=== PATIENT | female | born 1950 | race Caucasian/White ===

== ENCOUNTER 2018-03-05 17:42 | Emergency (ER) | payer MEDICARE, SELFPAY ==
[2018-03-05 17:45] VITALS: BP 141/76; PULSE 117; RESP 18; TEMP 37.4; O2SAT 98; BMI 38.2
--- NOTE | 2018-03-05 17:49 | ED_ITS ---
HPI - Extremity Injury (Lower) <JORDY Hernandez - Last Filed: 03/05/18 21:55> General Chief Complaint: Extremity Injury, Lower Stated Complaint: RT KNEE SWELLING Time Seen by Provider: 03/05/18 17:49 Source: patient History of Present Illness HPI Narrative: 67-year-old female here for complaint of pain into her right knee for the past week. She reports that she was walking in the kitchen when she twisted and felt the pain started to her right knee. She states the pain has not resolved to her right knee for this past week. She reports increased pain with ambulation. She did ambulate into the emergency room today. She denies any direct trauma to the knee. She denies any other concerns or complaints at this time. Related Data Previous Rx's Medication Instructions Recorded Glucose: Home Monitoring Kit 0 kit #1 ea 05/08/16 chlorthalidone 25 - 50 mg PO QDAY #60 tab 01/03/18 Glucose: Test Strips str BID #360 01/07/18 duloxetine 60 mg PO QDAY #30 cap 01/16/18 metformin [Glucophage] 500 mg PO TID #270 tab 01/23/18 duloxetine 30 mg PO QDAY #90 cap 01/24/18 losartan 100 mg tablet 100 mg PO QDAY #90 tab 02/22/18 alendronate 70 mg tablet 70 mg PO QWEEK #12 tab 02/27/18 Allergies Allergy/AdvReac Type Severity Reaction Status Date / Time cetirizine [CETIRIZINE] AdvReac Severe SLEEPINESS Unverified 01/23/18 12:25 THAT LASTED FOR ABOUT 2 1/2 DAYS Review of Systems <JORDY Hernandez - Last Filed: 03/05/18 21:55> Constitutional Denies chills, Denies fever(s), Denies lethargy and Denies weakness Eyes Denies change in vision, Denies eye discharge, Denies irritation and Denies loss of vision Musculoskeletal Comments: Right knee pain Neurologic Denies loss of vision and Denies weakness Exam <JORDY Hernandez - Last Filed: 03/05/18 21:55> Initial Vital Signs Initial Vital Signs: Vital Signs Temperature 99.3 F 03/05/18 17:45 Pulse Rate 117 H 03/05/18 17:45 Respiratory Rate 18 03/05/18 17:45 Blood Pressure 141/76 H 03/05/18 17:45 Pulse Oximetry 98 03/05/18 17:45 Const General: cooperative and well developed Nutritional Appearance: well nourished Orientation: alert, awake, oriented x3 and not confused [facility] [place] Mouth: oral mucosae normal, oropharynx normal and moist mucous membranes Eyes General: appearance normal, both eyes and all related structures Eyelids: eyelids normal Conjunctivae: conjunctivae normal Sclera: sclerae normal Pupils: PERRL EOM: EOM intact bilaterally Resp Effort & Inspection: normal respiratory effort, able to speak in complete sentences, no respiratory distress and no use of accessory muscles Auscultation: clear to auscultation bilaterally, no rales, no rhonchi and no wheezes Cardio Rate: regular rate Rhythm: regular rhythm Heart Sounds: no click, no gallops, no murmurs and no rubs Pulses: normal peripheral pulses Skin General: no rashes or lesions noted, No jaundice and No petechiae Extrem Other: Slight swelling to right knee. No deformities. No erythema. No open lesions. Distal sensation is intact. Distal pulses are intact. Distal range of motion is intact. Negative anterior posterior drawer sign negative varus and valgus stress test <Rajiv Rm DO - Last Filed: 03/06/18 03:21> Initial Vital Signs Initial Vital Signs: Vital Signs Temperature 99.3 F 03/05/18 17:45 Pulse Rate 117 H 03/05/18 17:45 Respiratory Rate 18 03/05/18 17:45 Blood Pressure 141/76 H 03/05/18 17:45 Pulse Oximetry 98 03/05/18 17:45 Course <JORDY Hernandez - Last Filed: 03/05/18 21:55> Orders Ordered: ED Orders 03/05/18 17:58 XR knee RT 3V Stat Vital Signs - 8 hr 03/05/18 17:45 03/05/18 18:40 03/05/18 19:16 Temperature 99.3 F 98.3 F Pulse Rate 117 H 109 H 107 H Respiratory Rate 18 19 Blood Pressure 141/76 H 120/69 Pulse Oximetry 98 97 <Rajiv Rm DO - Last Filed: 03/06/18 03:21> Orders Ordered: ED Orders 03/05/18 17:58 XR knee RT 3V Stat Vital Signs - 8 hr 03/05/18 17:45 03/05/18 18:40 03/05/18 19:16 Temperature 99.3 F 98.3 F Pulse Rate 117 H 109 H 107 H Respiratory Rate 18 19 Blood Pressure 141/76 H 120/69 Pulse Oximetry 98 97 MDM - Extremity Injury (Lower) <JORDY Hernandez - Last Filed: 03/05/18 21:55> Imaging Data knee: Radiologist's impression: Signed Patient: Aleksandra Barreto MR#: [id number] : 1950 Acct:[id number] Age/Sex: 67 / F Date of Service: 03/05/18 Loc: ED Accession Number: [id number] Procedure: XR knee RT 3V Ordering Provider: Cheng Hardy PROCEDURE: XR KNEE RT 3V INDICATIONS: right knee pain, swelling TECHNIQUE: 3 views of the knee were acquired. COMPARISON: None. FINDINGS: Bones: No fractures or dislocations. No suspicious bony lesions. There is moderate degenerative joint disease with joint space narrowing and osteophyte formation. Soft tissues: Small to moderate joint effusion. No suspicious soft tissue calcifications. IMPRESSION: No fractures. Degenerative joint disease and joint effusion. Dictated by: Jeremiah Henley M.D. on 03/05/2018 at 18:12 Approved by: Jeremiah Henley M.D. on 03/05/2018 at 18:13 [facility] Narrative Medical decision making narrative: X-ray of the right knee was obtained was negative for any acute findings. Signs and symptoms presents as sprain to the right knee. She is placed in knee immobilizer and crutches. She is instructed to follow up with primary care provider for further evaluation and discussion of MRI if continued a right knee pain. Use [id number] Tylenol as needed for any discomfort. Ice and and elevation to help with swelling. For any worsening symptoms return to the emergency room. Patient's heart rate was elevated today. She had no shortness of breath or chest pain. She states she has not been drinking enough water lately. She is instructed to drink fluids and follow up with primary care provider in the next few days. Return emergency room for any worsening symptoms. Discharge Plan Departure Patient Disposition: Home, Self-Care Clinical Impression: Right knee sprain Discharge Date/Time: 03/05/18 19:18 Interventions: ED Discharge Assessment Last Done: 03/05/18 19:16 Instructions: DI for Knee Sprain Activity Restrictions/Additional Instructions: X-ray of the right knee was obtained was negative for any acute findings. Will treat for acute knee sprain with [id number] Tylenol as needed for any discomfort. You have been placed in a knee immobilizer and crutches use as directed. Follow up with primary care provider and continued pain recommend getting an MRI to further evaluate the knee. For any worsening symptoms return to the emergency room. Heart rate was elevated today in the emergency room ensure you are drinking plenty of fluids. Prescriptions: No Action Glucose: Home Monitoring Kit Qty: 1 RF: 0 chlorthalidone 25 MG tablet 25 - 50 mg PO QDAY Qty: 60 RF: 3 Glucose: Test Strips BID Qty: 360 RF: 3 duloxetine 60 MG capsule,delayed release(DR/EC) 60 mg PO QDAY Qty: 30 RF: 3 metformin [Glucophage] 500 MG tablet 500 mg PO TID Qty: 270 RF: 0 duloxetine 30 MG capsule,delayed release(DR/EC) 30 mg PO QDAY Qty: 90 RF: 3 losartan 100 mg tablet 100 mg PO QDAY Qty: 90 RF: 1 alendronate 70 mg tablet 70 mg PO QWEEK Qty: 12 RF: 3 Referrals: Latrice Kearney PA-C [Primary Care Provider] - <Rajiv Rm DO - Last Filed: 03/06/18 03:21> Cosign ED Attending Alondra Attestation: I was immediately available in the department for consultation. Documentation has been reviewed. I agree with assessment and plan.
--- NOTE | 2018-03-05 17:58 | DI.RAD.S_ITS ---
PROCEDURE: XR KNEE RT 3V INDICATIONS: right knee pain, swelling TECHNIQUE: 3 views of the knee were acquired. COMPARISON: None. FINDINGS: Bones: No fractures or dislocations. No suspicious bony lesions. There is moderate degenerative joint disease with joint space narrowing and osteophyte formation. Soft tissues: Small to moderate joint effusion. No suspicious soft tissue calcifications. IMPRESSION: No fractures. Degenerative joint disease and joint effusion. Dictated by: Jeremiah Henley M.D. on 03/05/2018 at 18:12 Approved by: Jeremiah Henley M.D. on 03/05/2018 at 18:13
[2018-03-05 18:40] VITALS: PULSE 109
[2018-03-05 19:16] VITALS: BP 120/69; PULSE 107; RESP 19; TEMP 36.8; O2SAT 97
== END 2018-03-05 19:18 | disposition home or self-care (01) ==
PROVIDERS: Emergency Provider Nurse Practitioner Family; Family Provider Physician Assistant; PCP Physician Assistant
DX: S83.91XA Sprain of unspecified site of right knee, initial encounter (principal); W19.XXXA Unspecified fall, initial encounter
CPT/HCPCS: 73562; 99283

== ENCOUNTER → 2018-03-19 13:37 | Outpatient (CLI) | payer MEDICARE, MEDICAID, SELFPAY ==
[2018-03-19 14:19] LABS: Magnesium 1.5 mg/dL (1.6-2.3)
[2018-03-19 14:20] LABS: Erythrocyte Sedimentation Rate 21 MM/HR (0-20)
== END ==
PROVIDERS: PCP Physician Assistant; Visit Provider Physician Assistant
DX: D86.9 Sarcoidosis, unspecified (principal); R79.0 Abnormal level of blood mineral; E11.42 Type 2 diabetes mellitus with diabetic polyneuropathy; I10 Essential (primary) hypertension
CPT/HCPCS: 36415; 83735; 85651

== ENCOUNTER → 2018-06-05 08:16 | Outpatient (CLI) | payer MEDICARE, SELFPAY ==
[2018-06-05 09:07] LABS: Add Manual Diff / Slide Review NO; Basophils Percent Auto 0.5 % (0-2); Hematocrit 38.8 % (36-46); Hemoglobin 13.1 g/dL (12.0-16.0); Lymphocytes Percent Auto 28.2 % (25-40); Mean Corpuscular HGB Conc 33.7 % (30-36); Mean Corpuscular Hemoglobin 28.3 PG (26-34); Mean Corpuscular Volume 83.8 fL (80-100); Neutrophils Absolute Auto 4300 /uL (3000-5900); Neutrophils Percent Auto 59.3 % (50-75); Platelet Count 221 X10^3/uL (150-400); Red Blood Cell Count 4.63 X10^6/uL (4.0-5.2); Red Cell Distribution Width 14.3 % (11.6-14.8); White Blood Cell Count 7.3 X10^3/uL (4.5-11.0)
[2018-06-05 09:11] LABS: Hemoglobin A1C% w Est Avg Glu 6.6 % (4.0-6.0)
[2018-06-05 09:17] LABS: Alanine Aminotransferase 39 IU/L (9-52); Albumin Globulin Ratio 1.3 (1.0-2.8); Alkaline Phosphatase 65 U/L (38-126); Aspartate Aminotransferase 27 IU/L (14-36); BUN Creatinine Ratio 25.7 (6-22); Bilirubin Total 0.5 mg/dL (0.2-1.3); Blood Urea Nitrogen 18 mg/dL (7-17); Calcium 9.1 mg/dL (8.4-10.2); Carbon Dioxide 29 mmol/L (22-32); Chloride 99 mmol/L (98-107); Cholesterol 130 mg/dL (140-199); Estimated Glomerular Filt Rate > 60.0 mL/min (>60); Glucose 139 mg/dL (80-110); HDL Cholesterol 40 mg/dL (40-60); HEMOLYSIS < 15 (0-50); LDL Cholesterol Calculated 55 mg/dL (<100); Potassium 4.1 mmol/L (3.4-5.1); Sodium 138 mmol/L (137-145); Triglycerides 176 mg/dL (35-150)
== END ==
PROVIDERS: PCP Internal Medicine; Visit Provider Physician Assistant
DX: I10 Essential (primary) hypertension (principal); E78.2 Mixed hyperlipidemia; E11.42 Type 2 diabetes mellitus with diabetic polyneuropathy
CPT/HCPCS: 36415; 80053; 80061; 83036; 85025

== ENCOUNTER → 2018-07-03 08:56 | Outpatient (CLI) | payer MEDICARE, SELFPAY ==
--- NOTE | 2018-07-03 | DI.RAD.S_ITS ---
PROCEDURE: XR CHEST 2V INDICATIONS: COUGH, HISTORY OF SARCOIDOSIS TECHNIQUE: 2 views of the chest were acquired. COMPARISON: [facility], , CHEST 2 VIEW, 11/29/2016, 9:01. FINDINGS: Surgical changes and devices: None. Lungs and pleura: No pleural effusions or pneumothorax. Mildly increased interstitial lung markings are noted, which may be related to patient's history of sarcoidosis. No focal infiltrate is seen. Mediastinum: Mediastinal contours are normal. Heart size is enlarged. Bones and chest wall: No suspicious bony abnormalities. Soft tissues appear unremarkable. IMPRESSION: No acute cardiopulmonary pathology. Chronically increased interstitial markings, which may be related to patient's known sarcoidosis. Dictated by: Roland Lopez M.D. on 07/03/2018 at 11:11 Approved by: Roland Lopez M.D. on 07/03/2018 at 11:14
== END ==
PROVIDERS: PCP Internal Medicine; Visit Provider Internal Medicine
DX: R05 Cough (principal); D86.9 Sarcoidosis, unspecified
CPT/HCPCS: 71046

== ENCOUNTER 2018-08-09 11:16 | Emergency (ER) | payer MEDICARE, SELFPAY ==
[2018-08-09 11:20] VITALS: BP 151/89; PULSE 101; RESP 18; TEMP 36.8; O2SAT 97; BMI 38.5
--- NOTE | 2018-08-09 12:41 | ED.HA ---
HPI - Headache <Anita Uribe PA-C - Last Filed: 08/09/18 21:23> General Chief Complaint: Headache Stated Complaint: HEADACHES FOR A MONTH, NECK IS HURTING Time Seen by Provider: 08/09/18 12:33 Source: patient Mode of arrival: ambulatory Limitations: no limitations History of Present Illness HPI Narrative: this 68-year-old female comes in due to persistent headache for the last month. She states that frequently this is all around her head, today more in the frontal area. She states that she had been taking Tylenol for headache and not keeping her from activity, but in the last 2 weeks she has also had pain in the right side of her neck and shoulder area along with this and is concerned due to her history of sarcoidosis. she did run out of Tylenol 3 weeks ago and has been taking aspirin. She states that she has bilateral ear tubes and history of TM perforation. She has had some clear liquid in her right eardrum at times along with this. She states that she tends to have sinus symptoms and cough during the winter chronically, no acute change. She has not had fever. She denies any photophobia. She denies any jaw claudication. She states that when her headache is more severe like it was yesterday she can have some nausea and feels like her vision might be a little blurred, however does not affect her ability to read or watch TV. She States that her neck can be sore with some movements, but no difficulty moving her shoulders. She has not had any new rash. She denies any tooth pain. She states that she came in today because she was supposed to see design specialist and was going to review this with her but was not able to make that appointment. She has not had further testing with her PCP for this Related Data Home Medications Medication Instructions Recorded Confirmed Glucose: Home Monitoring Kit 1 kit MISCELLANEOUS DIRECTED 08/09/18 08/09/18 Glucose: Test Strips 1 str MISCELLANEOUS BID 08/09/18 08/09/18 Previous Rx's Medication Instructions Recorded duloxetine 60 mg PO QDAY #30 cap 01/16/18 duloxetine 30 mg PO QDAY #90 cap 01/24/18 losartan 100 mg tablet 100 mg PO QDAY #90 tab 02/22/18 alendronate 70 mg tablet 70 mg PO QWEEK #12 tab 02/27/18 chlorthalidone 25 mg tablet 25 - 50 mg PO QDAY #60 tab 06/05/18 metformin 500 mg tablet 500 mg PO TID #270 tab 07/22/18 cyclobenzaprine 10 mg PO Q8H PRN #10 tab 08/09/18 Allergies Allergy/AdvReac Type Severity Reaction Status Date / Time cetirizine [CETIRIZINE] AdvReac Severe SLEEPINESS Unverified 03/18/18 11:25 THAT LASTED FOR ABOUT 2 1/2 DAYS Review of Systems <Anita Uribe PA-C - Last Filed: 08/09/18 21:23> Review of Systems All systems reviewed & are unremarkable except as noted in HPI and below PFSH <Anita Uribe PA-C - Last Filed: 08/09/18 21:23> Comment: occasional ETOH Exam <Anita Uribe PA-C - Last Filed: 08/09/18 21:23> Narrative Exam Narrative: GENERAL APPEARANCE: Patient sitting comfortably, in no distress. HEENT: PERRL, EOMI, right TM appears to have 2 old perforations, tympanostomy tube not visible, no erythema, there are few drops of clear drainage in the canal, left also appears to have an old perforation, tip of tympanostomy tube visible. Normal oropharynx, PND noted, no sinus TTP NECK: Supple, no masses LUNGS: Clear to auscultation bilaterally, occasional cough on exam. HEART: Rate and rhythm regular without murmur, normal S1 and S2, no S3 or S4. NEUROLOGIC: Alert and oriented, normal speech, and coordination. MUSCULOSKELETAL: Full Csp AROM, with tenderness on bilateral lateral bend and right rotation. Full range of motion of the shoulders without tenderness DERMATOLOGIC: No exanthem Initial Vital Signs Initial Vital Signs: Vital Signs Temperature 98.3 F 08/09/18 11:20 Pulse Rate 101 H 08/09/18 11:20 Respiratory Rate 18 08/09/18 11:20 Blood Pressure 151/89 H 08/09/18 11:20 Pulse Oximetry 97 08/09/18 11:20 <Emily Posada DO - Last Filed: 08/11/18 08:05> Initial Vital Signs Initial Vital Signs: Vital Signs Temperature 98.3 F 08/09/18 11:20 Pulse Rate 101 H 08/09/18 11:20 Respiratory Rate 18 08/09/18 11:20 Blood Pressure 151/89 H 08/09/18 11:20 Pulse Oximetry 97 08/09/18 11:20 Course <Anita Uribe PA-C - Last Filed: 08/09/18 21:23> Additional Information: patient appears neurologically normal. No evidence of arteritis or other source for her headache. Discussed likely multifactorial given her history of ear issues, sinus problems and also new neck and shoulder pain and strain. She is feeling significantly improved following Tylenol and Flexeril. Will continue these at home as needed ( she does not drive), and she will call her PCP for follow-up as well as ENT, with whom she is established locally. She agreed to return if any new or acutely worsening symptoms Orders Ordered: Discontinued Medications Acetaminophen (Tylenol) 650 mg PO NOW ONE Stop: 08/09/18 13:01 Last Admin: 08/09/18 13:05 Dose: 650 mg Cyclobenzaprine HCl (Flexeril) 5 mg PO NOW ONE Stop: 08/09/18 13:01 Last Admin: 08/09/18 13:04 Dose: 5 mg Vital Signs - 8 hr 08/09/18 14:36 Pulse Rate 91 H Respiratory Rate 15 Blood Pressure 140/70 Pulse Oximetry 97 <Emily Posada DO - Last Filed: 08/11/18 08:05> Orders Ordered: Discontinued Medications Acetaminophen (Tylenol) 650 mg PO NOW ONE Stop: 08/09/18 13:01 Last Admin: 08/09/18 13:05 Dose: 650 mg Cyclobenzaprine HCl (Flexeril) 5 mg PO NOW ONE Stop: 08/09/18 13:01 Last Admin: 08/09/18 13:04 Dose: 5 mg Vital Signs - 8 hr 08/09/18 14:36 Pulse Rate 91 H Respiratory Rate 15 Blood Pressure 140/70 Pulse Oximetry 97 MDM - Headache <Anita Uribe PA-C - Last Filed: 08/09/18 21:23> Imaging Data Cspine: Radiologist's impression: [address] [address] XRay Report Signed Patient: Aleksandra Barreto [facility]#: [id number] : 9Acct:[id number] Age/Sex: 68 / FDate of Service: 08/09/18 Loc: ED Accession Number: [id number] Procedure: XR cervical spine 2V or 3V Ordering Provider: Anita Uribe P.A-C PROCEDURE: XR CERVICAL SPINE 2V OR 3V INDICATIONS: pain TECHNIQUE: 3 view(s) of the cervical spine were acquired. COMPARISON: None. FINDINGS: Bones: There is straightening and reversal of normal cervical lordosis centered at C4-5 level. Minimal anterolisthesis of C3 on C4 is seen. Degenerative endplate changes and bilateral facet hypertrophic changes are noted at C3-4 through C6-7 levels. No acute compression fracture or gross traumatic spondylolisthesis. The lateral masses of C1 appear intact on the odontoid view. No suspicious bony lesions. Soft tissues: No prevertebral soft tissue swelling. IMPRESSION: Degenerative disc disease throughout cervical spine more prominent at C5-6 level. Minimal anterolisthesis of C3 on C4. No acute compression fracture or traumatic spondylolisthesis. Dictated by: Roland Lopez M.D. on 08/09/2018 at 13:42 Approved by: Roland Lopez M.D. on 08/09/2018 at 13:43 CT scan - head: Radiologist's impression: [place] [address] CT Scan Report Signed Patient: Aleksandra Barreto [facility]#: [id number] : 9Acct:[id number] Age/Sex: 68 / FDate of Service: 08/09/18 Loc: ED Accession Number: [id number] Procedure: CT head/brain wo con Ordering Provider: Anita Uribe P.A-C PROCEDURE: CT HEAD/BRAIN WO CON INDICATIONS: atypical MONTANEZ TECHNIQUE: Noncontrast 4.5 mm thick angled axial sections acquired from the foramen magnum to the vertex, with coronal and sagittal reformats. For radiation dose reduction, the following was used: automated exposure control, adjustment of mA and/or kV according to patient size. COMPARISON: None. FINDINGS: Image quality: Excellent. CSF spaces: Basal cisterns are patent. No extra-axial fluid collections. Ventricles are mildly prominent with corresponding minimal parenchymal volume loss. Brain: No midline shift. No intracranial masses or hemorrhage. Davalos-white matter interface is normal. There may be subtle areas of low attenuation within the periventricular white matter of the supratentorial brain suggesting prior areas of ischemia. There also are areas of low attenuation involving the bilateral basal ganglia. Skull and face: Calvarium and visualized facial bones are intact, without suspicious lesions. Sinuses: Visualized sinuses and mastoids are clear. IMPRESSION: 1. No acute intracranial hemorrhage. 2. Possible mild chronic small vessel ischemic changes and parenchymal volume loss. Dictated by: Rohan Loza M.D. on 08/09/2018 at 12:33 Approved by: Rohan Loza M.D. on 08/09/2018 at 12:34 Discharge Plan Departure Patient Disposition: Home Clinical Impression: Headache Discharge Date/Time: 08/09/18 14:37 Interventions: ED Discharge Assessment Last Done: 08/09/18 14:36 Instructions: DI for Headache Activity Restrictions/Additional Instructions: as we talked about today, I think your headache is likely caused by several factors. Your sinus and ear problems may contribute, and you need to follow-up on your here since I do not see a tube today. Clearly you have muscle soreness and tension in the neck which may contribute as well. Since the Tylenol and muscle relaxant have helped you, you can continue these as needed (remember that the muscle relaxant can make you sleepy, so please avoid activities where you need to be alert when taking it). You may want to try Tylenol extended release or arthritis Strength, which is 650 mg per pill every 8 hr. The pharmacist can help you find this, it is [id number]. You may also wish to try [id number] lidocaine or topical patches, and heat or ice. Please follow-up with your PCP early next week, and also please call [facility] to schedule follow-up. As we talked about, you should return here if you have any acutely worsening symptoms, or new symptoms such as vomiting, vision change, or weakness. Prescriptions: New cyclobenzaprine 10 mg tablet 10 mg PO Q8H PRN (Reason: muscle spasm) Qty: 10 RF: 0 No Action duloxetine 60 MG capsule,delayed release(DR/EC) 60 mg PO QDAY Qty: 30 RF: 3 duloxetine 30 MG capsule,delayed release(DR/EC) 30 mg PO QDAY Qty: 90 RF: 3 losartan 100 mg tablet 100 mg PO QDAY Qty: 90 RF: 1 alendronate 70 mg tablet 70 mg PO QWEEK Qty: 12 RF: 3 chlorthalidone 25 mg tablet 25 - 50 mg PO QDAY Qty: 60 RF: 0 metformin [Glucophage] 500 mg tablet 500 mg PO TID Qty: 270 RF: 0 Glucose: Home Monitoring Kit 1 kit miscellaneous DIRECTED RF: 0 Glucose: Test Strips 1 str miscellaneous BID RF: 0 Referrals: [facility] [Provider Group] [facility] [Provider Group] <Emily Posada DO - Last Filed: 08/11/18 08:05> Cosign ED Attending Cosignature Attestation: I was immediately available in the department for consultation. This documentation has been reviewed and I agree with assessment and plan. Supervised by Emily Posada DO
--- NOTE | 2018-08-09 12:45 | ED_ITS ---
HPI - Headache <Anita Uribe PA-C - Last Filed: 08/09/18 21:23> General Chief Complaint: Headache Stated Complaint: HEADACHES FOR A MONTH, NECK IS HURTING Time Seen by Provider: 08/09/18 12:33 Source: patient Mode of arrival: ambulatory Limitations: no limitations History of Present Illness HPI Narrative: this 68-year-old female comes in due to persistent headache for the last month. She states that frequently this is all around her head, today more in the frontal area. She states that she had been taking Tylenol for headache and not keeping her from activity, but in the last 2 weeks she has also had pain in the right side of her neck and shoulder area along with this and is concerned due to her history of sarcoidosis. she did run out of Tylenol 3 weeks ago and has been taking aspirin. She states that she has bilateral ear tubes and history of TM perforation. She has had some clear liquid in her right eardrum at times along with this. She states that she tends to have sinus symptoms and cough during the winter chronically, no acute change. She has not had fever. She denies any photophobia. She denies any jaw claudication. She states that when her headache is more severe like it was yesterday she can have some nausea and feels like her vision might be a little blurred, however does not affect her ability to read or watch TV. She States that her neck can be sore with some movements, but no difficulty moving her shoulders. She has not had any new rash. She denies any tooth pain. She states that she came in today because she was supposed to see presentation specialist and was going to review this with her but was not able to make that appointment. She has not had further testing with her PCP for this Related Data Home Medications Medication Instructions Recorded Confirmed Glucose: Home Monitoring Kit 1 kit MISCELLANEOUS DIRECTED 08/09/18 08/09/18 Glucose: Test Strips 1 str MISCELLANEOUS BID 08/09/18 08/09/18 Previous Rx's Medication Instructions Recorded duloxetine 60 mg PO QDAY #30 cap 01/16/18 duloxetine 30 mg PO QDAY #90 cap 01/24/18 losartan 100 mg tablet 100 mg PO QDAY #90 tab 02/22/18 alendronate 70 mg tablet 70 mg PO QWEEK #12 tab 02/27/18 chlorthalidone 25 mg tablet 25 - 50 mg PO QDAY #60 tab 06/05/18 metformin 500 mg tablet 500 mg PO TID #270 tab 07/22/18 cyclobenzaprine 10 mg PO Q8H PRN #10 tab 08/09/18 Allergies Allergy/AdvReac Type Severity Reaction Status Date / Time cetirizine [CETIRIZINE] AdvReac Severe SLEEPINESS Unverified 03/18/18 11:25 THAT LASTED FOR ABOUT 2 1/2 DAYS Review of Systems <Anita Uribe PA-C - Last Filed: 08/09/18 21:23> Review of Systems All systems reviewed & are unremarkable except as noted in HPI and below PFSH <Anita Uribe PA-C - Last Filed: 08/09/18 21:23> Comment: occasional ETOH Exam <Anita Uribe PA-C - Last Filed: 08/09/18 21:23> Narrative Exam Narrative: GENERAL APPEARANCE: Patient sitting comfortably, in no distress. HEENT: PERRL, EOMI, right TM appears to have 2 old perforations, tympanostomy tube not visible, no erythema, there are few drops of clear drainage in the canal, left also appears to have an old perforation, tip of tympanostomy tube visible. Normal oropharynx, PND noted, no sinus TTP NECK: Supple, no masses LUNGS: Clear to auscultation bilaterally, occasional cough on exam. HEART: Rate and rhythm regular without murmur, normal S1 and S2, no S3 or S4. NEUROLOGIC: Alert and oriented, normal speech, and coordination. MUSCULOSKELETAL: Full Csp AROM, with tenderness on bilateral lateral bend and right rotation. Full range of motion of the shoulders without tenderness DERMATOLOGIC: No exanthem Initial Vital Signs Initial Vital Signs: Vital Signs Temperature 98.3 F 08/09/18 11:20 Pulse Rate 101 H 08/09/18 11:20 Respiratory Rate 18 08/09/18 11:20 Blood Pressure 151/89 H 08/09/18 11:20 Pulse Oximetry 97 08/09/18 11:20 <Emily Posada DO - Last Filed: 08/11/18 08:05> Initial Vital Signs Initial Vital Signs: Vital Signs Temperature 98.3 F 08/09/18 11:20 Pulse Rate 101 H 08/09/18 11:20 Respiratory Rate 18 08/09/18 11:20 Blood Pressure 151/89 H 08/09/18 11:20 Pulse Oximetry 97 08/09/18 11:20 Course <Anita Uribe PA-C - Last Filed: 08/09/18 21:23> Additional Information: patient appears neurologically normal. No evidence of arteritis or other source for her headache. Discussed likely multifactorial given her history of ear issues, sinus problems and also new neck and shoulder pain and strain. She is feeling significantly improved following Tylenol and Flexeril. Will continue these at home as needed ( she does not drive), and she will call her PCP for follow-up as well as ENT, with whom she is established locally. She agreed to return if any new or acutely worsening symptoms Orders Ordered: Discontinued Medications Acetaminophen (Tylenol) 650 mg PO NOW ONE Stop: 08/09/18 13:01 Last Admin: 08/09/18 13:05 Dose: 650 mg Cyclobenzaprine HCl (Flexeril) 5 mg PO NOW ONE Stop: 08/09/18 13:01 Last Admin: 08/09/18 13:04 Dose: 5 mg Vital Signs - 8 hr 08/09/18 14:36 Pulse Rate 91 H Respiratory Rate 15 Blood Pressure 140/70 Pulse Oximetry 97 <Emily Posada DO - Last Filed: 08/11/18 08:05> Orders Ordered: Discontinued Medications Acetaminophen (Tylenol) 650 mg PO NOW ONE Stop: 08/09/18 13:01 Last Admin: 08/09/18 13:05 Dose: 650 mg Cyclobenzaprine HCl (Flexeril) 5 mg PO NOW ONE Stop: 08/09/18 13:01 Last Admin: 08/09/18 13:04 Dose: 5 mg Vital Signs - 8 hr 08/09/18 14:36 Pulse Rate 91 H Respiratory Rate 15 Blood Pressure 140/70 Pulse Oximetry 97 MDM - Headache <Anita Uribe PA-C - Last Filed: 08/09/18 21:23> Imaging Data Cspine: Radiologist's impression: [address] [address] XRay Report Signed Patient: Aleksandra Barreto [facility]#: [id number] : 9Acct:[id number] Age/Sex: 68 / FDate of Service: 08/09/18 Loc: ED Accession Number: [id number] Procedure: XR cervical spine 2V or 3V Ordering Provider: Anita Uribe P.A-C PROCEDURE: XR CERVICAL SPINE 2V OR 3V INDICATIONS: pain TECHNIQUE: 3 view(s) of the cervical spine were acquired. COMPARISON: None. FINDINGS: Bones: There is straightening and reversal of normal cervical lordosis centered at C4-5 level. Minimal anterolisthesis of C3 on C4 is seen. Degenerative endplate changes and bilateral facet hypertrophic changes are noted at C3-4 through C6-7 levels. No acute compression fracture or gross traumatic spondylolisthesis. The lateral masses of C1 appear intact on the odontoid view. No suspicious bony lesions. Soft tissues: No prevertebral soft tissue swelling. IMPRESSION: Degenerative disc disease throughout cervical spine more prominent at C5-6 level. Minimal anterolisthesis of C3 on C4. No acute compression fracture or traumatic spondylolisthesis. Dictated by: Roland Lopez M.D. on 08/09/2018 at 13:42 Approved by: Roland Lopez M.D. on 08/09/2018 at 13:43 CT scan - head: Radiologist's impression: [place] [address] CT Scan Report Signed Patient: Aleksandra Barreto [facility]#: [id number] : 9Acct:[id number] Age/Sex: 68 / FDate of Service: 08/09/18 Loc: ED Accession Number: [id number] Procedure: CT head/brain wo con Ordering Provider: Anita Uribe P.A-C PROCEDURE: CT HEAD/BRAIN WO CON INDICATIONS: atypical MONTANEZ TECHNIQUE: Noncontrast 4.5 mm thick angled axial sections acquired from the foramen magnum to the vertex, with coronal and sagittal reformats. For radiation dose reduction, the following was used: automated exposure control, adjustment of mA and/or kV according to patient size. COMPARISON: None. FINDINGS: Image quality: Excellent. CSF spaces: Basal cisterns are patent. No extra-axial fluid collections. Ventricles are mildly prominent with corresponding minimal parenchymal volume loss. Brain: No midline shift. No intracranial masses or hemorrhage. Davalos-white matter interface is normal. There may be subtle areas of low attenuation within the periventricular white matter of the supratentorial brain suggesting prior areas of ischemia. There also are areas of low attenuation involving the bilateral basal ganglia. Skull and face: Calvarium and visualized facial bones are intact, without suspicious lesions. Sinuses: Visualized sinuses and mastoids are clear. IMPRESSION: 1. No acute intracranial hemorrhage. 2. Possible mild chronic small vessel ischemic changes and parenchymal volume loss. Dictated by: Rohan Loza M.D. on 08/09/2018 at 12:33 Approved by: Rohan Loza M.D. on 08/09/2018 at 12:34 Discharge Plan Departure Patient Disposition: Home Clinical Impression: Headache Discharge Date/Time: 08/09/18 14:37 Interventions: ED Discharge Assessment Last Done: 08/09/18 14:36 Instructions: DI for Headache Activity Restrictions/Additional Instructions: as we talked about today, I think your headache is likely caused by several factors. Your sinus and ear problems may contribute, and you need to follow-up on your here since I do not see a tube today. Clearly you have muscle soreness and tension in the neck which may contribute as well. Since the Tylenol and muscle relaxant have helped you, you can continue these as needed (remember that the muscle relaxant can make you sleepy, so please avoid activities where you need to be alert when taking it). You may want to try Tylenol extended release or arthritis Strength, which is 650 mg per pill every 8 hr. The pharmacist can help you find this, it is [id number]. You may also wish to try [id number] lidocaine or topical patches, and heat or ice. Please follow-up with your PCP early next week, and also please call [facility] to schedule follow-up. As we talked about, you should return here if you have any acutely worsening symptoms, or new symptoms such as vomiting, vision change, or weakness. Prescriptions: New cyclobenzaprine 10 mg tablet 10 mg PO Q8H PRN (Reason: muscle spasm) Qty: 10 RF: 0 No Action duloxetine 60 MG capsule,delayed release(DR/EC) 60 mg PO QDAY Qty: 30 RF: 3 duloxetine 30 MG capsule,delayed release(DR/EC) 30 mg PO QDAY Qty: 90 RF: 3 losartan 100 mg tablet 100 mg PO QDAY Qty: 90 RF: 1 alendronate 70 mg tablet 70 mg PO QWEEK Qty: 12 RF: 3 chlorthalidone 25 mg tablet 25 - 50 mg PO QDAY Qty: 60 RF: 0 metformin [Glucophage] 500 mg tablet 500 mg PO TID Qty: 270 RF: 0 Glucose: Home Monitoring Kit 1 kit miscellaneous DIRECTED RF: 0 Glucose: Test Strips 1 str miscellaneous BID RF: 0 Referrals: [facility] [Provider Group] [facility] [Provider Group] <Emily Posada DO - Last Filed: 08/11/18 08:05> Cosign ED Attending Cosignature Attestation: I was immediately available in the department for consultation. This documentation has been reviewed and I agree with assessment and plan. Supervised by Emily Posada DO
--- NOTE | 2018-08-09 13:00 | DI.RAD.S_ITS ---
PROCEDURE: XR CERVICAL SPINE 2V OR 3V INDICATIONS: pain TECHNIQUE: 3 view(s) of the cervical spine were acquired. COMPARISON: None. FINDINGS: Bones: There is straightening and reversal of normal cervical lordosis centered at C4-5 level. Minimal anterolisthesis of C3 on C4 is seen. Degenerative endplate changes and bilateral facet hypertrophic changes are noted at C3-4 through C6-7 levels. No acute compression fracture or gross traumatic spondylolisthesis. The lateral masses of C1 appear intact on the odontoid view. No suspicious bony lesions. Soft tissues: No prevertebral soft tissue swelling. IMPRESSION: Degenerative disc disease throughout cervical spine more prominent at C5-6 level. Minimal anterolisthesis of C3 on C4. No acute compression fracture or traumatic spondylolisthesis. Dictated by: Roland Lopez M.D. on 08/09/2018 at 13:42 Approved by: Roland Lopez M.D. on 08/09/2018 at 13:43
--- NOTE | 2018-08-09 13:00 | DI.CT.S_ITS ---
PROCEDURE: CT HEAD/BRAIN WO CON INDICATIONS: atypical MONTANEZ TECHNIQUE: Noncontrast 4.5 mm thick angled axial sections acquired from the foramen magnum to the vertex, with coronal and sagittal reformats. For radiation dose reduction, the following was used: automated exposure control, adjustment of mA and/or kV according to patient size. COMPARISON: None. FINDINGS: Image quality: Excellent. CSF spaces: Basal cisterns are patent. No extra-axial fluid collections. Ventricles are mildly prominent with corresponding minimal parenchymal volume loss. Brain: No midline shift. No intracranial masses or hemorrhage. Davalos-white matter interface is normal. There may be subtle areas of low attenuation within the periventricular white matter of the supratentorial brain suggesting prior areas of ischemia. There also are areas of low attenuation involving the bilateral basal ganglia. Skull and face: Calvarium and visualized facial bones are intact, without suspicious lesions. Sinuses: Visualized sinuses and mastoids are clear. IMPRESSION: 1. No acute intracranial hemorrhage. 2. Possible mild chronic small vessel ischemic changes and parenchymal volume loss. Dictated by: Rohan Loza M.D. on 08/09/2018 at 12:33 Approved by: Rohan Loza M.D. on 08/09/2018 at 12:34
[2018-08-09] MEDS: CYCLOBENZAPRINE 10 MG TABLET 5 MG PO (13:04)
[2018-08-09 13:05] VITALS: BP 172/85; PULSE 94; RESP 18; TEMP 36.1; O2SAT 99
[2018-08-09] MEDS: ACETAMINOPHEN 325 MG TABLET 650 MG PO (13:05)
--- NOTE | 2018-08-09 13:31 | PC.NURSE ---
Patient generally wears glasses however she did not bring them with her today.
[2018-08-09 14:36] VITALS: BP 140/70; PULSE 91; RESP 15; O2SAT 97
== END 2018-08-09 14:37 | disposition home or self-care (01) ==
PROVIDERS: Emergency Provider Internal Medicine; Family Provider Physician Assistant; PCP Internal Medicine
DX: R51 Headache (principal)
CPT/HCPCS: 70450; 72040; 99283; 99284

== ENCOUNTER → 2018-12-05 13:46 | Outpatient (CLI) | payer MEDICARE, SELFPAY ==
--- NOTE | 2018-12-05 | DI.CT.S_ITS ---
PROCEDURE: CT CHEST WO CON INDICATIONS: SARCOIDOSIS TECHNIQUE: Noncontrast 5 mm thick sections acquired from the pulmonary apices to the posterior costophrenic angles. 7 mm thick coronal and sagittal MIP reformats were then acquired. For radiation dose reduction, the following was used: automated exposure control, adjustment of mA and/or kV according to patient size. COMPARISON: [facility], CT, ABDOMEN/PELVIS WITH CONTRAST, 12/13/2016, 8:54. FINDINGS: Image quality: Excellent. Lungs and pleura: No acute air space opacities. No pleural effusions or pneumothorax. Central and peripheral airways are patent and normal in caliber. Mediastinum: Heart size is normal. No pericardial effusion. No mediastinal adenopathy by size criteria. Thoracic aorta and central pulmonary arteries are normal in size. Esophagus is normal in caliber. No hiatal hernia. Bones and chest wall: No suspicious bony lesions. No vertebral body compression fractures. No axillary or supraclavicular adenopathy by size criteria. Thyroid gland appears normal where well visualized.. Abdomen: Visualized upper abdominal solid organs and bowel loops appear normal in the absence of contrast. Note is again made of a left hepatic lobe superior cyst, 1.8 cm in maximal dimension. IMPRESSION: Relatively large body habitus, suspect fatty infiltration throughout the liver. A source of shortness of breath is not seen. Please note that this study does not include contrast enhancement. Dictated by: Taran Ohara M.D. on 12/05/2018 at 16:46 Approved by: Taran Ohara M.D. on 12/05/2018 at 16:48
== END ==
PROVIDERS: PCP Internal Medicine; Visit Provider Internal Medicine Critical Care Medicine
DX: D86.9 Sarcoidosis, unspecified (principal)
CPT/HCPCS: 71250

== ENCOUNTER → 2018-12-27 12:36 | Outpatient (CLI) | payer MEDICARE, SELFPAY ==
--- NOTE | 2018-12-27 | DI.MG.S_ITS ---
BILATERAL DIGITAL SCREENING MAMMOGRAM 3D/2D WITH CAD: 12/27/2018 Comparison is made to exams dated: 10/17/2010 mammogram - [facility], 11/10/2016 mammogram, and 11/28/2017 mammogram - [facility]. The tissue of both breasts is predominantly fatty. Current study was also evaluated with a Computer Aided Detection (CAD) system. No significant masses, calcifications, or other findings are seen in either breast. There has been no significant interval change. IMPRESSION: NEGATIVE There is no mammographic evidence of malignancy. A 1 year screening mammogram is recommended. This exam was interpreted at Station ID: [id number]. NOTE: For mammograms, a report in lay terms will be sent to the patient. Approximately 15% of breast malignancies will not be visualized mammographically. In the management of a palpable breast mass, a negative mammogram must not discourage biopsy of a clinically suspicious lesion. Electronically Signed By: Alicia gusman/varsha:12/27/2018 16:27:17 letter sent: Normal Exam ACR BI-RADS Category 1: Negative 3341F
== END ==
PROVIDERS: PCP Internal Medicine; Visit Provider Physician Assistant
DX: Z12.31 Encounter for screening mammogram for malignant neoplasm of breast (principal)
CPT/HCPCS: 77063; 77067

== ENCOUNTER → 2019-09-02 12:22 | Outpatient (CLI) | payer MEDICARE, MEDICAID, SELFPAY ==
--- NOTE | 2019-09-02 | DI.RAD.S_ITS ---
PROCEDURE: XR CHEST 2V INDICATIONS: COUGH TECHNIQUE: 2 views of the chest were acquired. COMPARISON: [facility], , XR CHEST 2V, 07/03/2018, 8:36. [facility], , CHEST 2 VIEW, 11/29/2016, 9:01. FINDINGS: Surgical changes and devices: None. Lungs and pleura: Lungs are clear. No pleural effusions or pneumothorax. Mediastinum: Mediastinal contours are normal. Heart size is normal. Bones and chest wall: No suspicious bony abnormalities. Soft tissues appear unremarkable. IMPRESSION: Normal for age, source of current cough symptoms is not seen. Dictated by: Taran Ohara M.D. on 09/02/2019 at 13:17 Approved by: Taran Ohara M.D. on 09/02/2019 at 13:18
[2019-09-02 13:04] LABS: Add Manual Diff / Slide Review NO; Basophils Absolute Auto 0 /uL (0-100); Basophils Percent Auto 0.5 % (0-2); Eosinophils Absolute Auto 200 /uL (0-450); Eosinophils Percent Auto 2.2 % (2-4); Hematocrit 39.9 % (36-46); Hemoglobin 13.6 g/dL (12.0-16.0); Lymphocytes Absolute Auto 2300 /uL (1100-4500); Lymphocytes Percent Auto 24.1 % (25-40); Mean Corpuscular Hemoglobin 29.5 PG (26-34); Mean Corpuscular Volume 86.8 fL (80-100); Monocytes Absolute Auto 600 /uL (0-900); Monocytes Percent Auto 6.4 % (3-14); Neutrophils Absolute Auto 6300 /uL (1500-7000); Neutrophils Percent Auto 66.8 % (50-75); Platelet Count 251 X10^3/uL (150-400); Red Cell Distribution Width 13.6 % (11.6-14.8); White Blood Cell Count 9.5 X10^3/uL (4.5-11.0)
[2019-09-02 13:41] LABS: Alanine Aminotransferase 59 IU/L (<35); Albumin 4.2 g/dL (3.5-5.0); Albumin Globulin Ratio 1.3 (1.0-2.8); Alkaline Phosphatase 87 U/L (38-126); Aspartate Aminotransferase 83 IU/L (14-36); Bilirubin Total 0.4 mg/dL (0.2-1.3); Blood Urea Nitrogen 14 mg/dL (7-17); Calcium 9.7 mg/dL (8.4-10.2); Carbon Dioxide 29 mmol/L (22-32); Chloride 94 mmol/L (98-107); Cholesterol 166 mg/dL (140-199); Estimated Glomerular Filt Rate > 60.0 mL/min (>60); Globulin 3.2 g/dL (1.7-4.1); Glucose 376 mg/dL (80-110); HDL Cholesterol 42 mg/dL (40-60); HEMOLYSIS < 15 (0-50); LDL Cholesterol Calculated 45 mg/dL (<100); Potassium 4.1 mmol/L (3.4-5.1); Sodium 137 mmol/L (137-145); Total Protein 7.4 g/dL (6.3-8.2); Triglycerides 393 mg/dL (35-150)
== END ==
PROVIDERS: PCP Internal Medicine; Visit Provider Internal Medicine
DX: R05 Cough (principal); E11.9 Type 2 diabetes mellitus without complications; E78.5 Hyperlipidemia, unspecified; R04.2 Hemoptysis
CPT/HCPCS: 36415; 71046; 80053; 80061; 83036; 85025

== ENCOUNTER → 2020-08-09 16:43 | Outpatient (CLI) | payer MEDICARE, MEDICAID, SELFPAY ==
[2020-08-09 18:11] LABS: Alanine Aminotransferase 74 IU/L (<35); Albumin 4.1 g/dL (3.5-5.0); Albumin Globulin Ratio 1.1 (1.0-2.8); Alkaline Phosphatase 70 U/L (38-126); Aspartate Aminotransferase 74 IU/L (14-36); BUN Creatinine Ratio 31.7 (6-22); Bilirubin Total 0.4 mg/dL (0.2-1.3); Blood Urea Nitrogen 19 mg/dL (7-17); Calcium 9.1 mg/dL (8.4-10.2); Carbon Dioxide 28 mmol/L (22-32); Chloride 103 mmol/L (98-107); Cholesterol 183 mg/dL (140-199); Estimated Glomerular Filt Rate > 60.0 mL/min (>60); Globulin 3.9 g/dL (1.7-4.1); Glucose 154 mg/dL (80-110); HDL Cholesterol 39 mg/dL (40-60); HEMOLYSIS 27 (0-50); LDL Cholesterol Calculated 87 mg/dL (<100); Potassium 4.3 mmol/L (3.4-5.1); Sodium 138 mmol/L (137-145); Triglycerides 285 mg/dL (35-150)
[2020-08-09 18:15] LABS: Hemoglobin A1C% w Est Avg Glu 7.7 % (4.0-6.0)
== END ==
PROVIDERS: PCP Internal Medicine; Referring Provider Internal Medicine; Visit Provider Internal Medicine
DX: I10 Essential (primary) hypertension (principal); E78.5 Hyperlipidemia, unspecified; E11.9 Type 2 diabetes mellitus without complications
CPT/HCPCS: 36415; 80053; 80061; 83036

== ENCOUNTER → 2020-08-14 10:43 | Outpatient (CLI) | payer MEDICARE, MEDICAID, SELFPAY ==
--- NOTE | 2020-08-14 | DI.RAD.S_ITS ---
PROCEDURE: XR CHEST 2V INDICATIONS: COUGH TECHNIQUE: 2 views of the chest were acquired. COMPARISON: [facility], CT, CT CHEST WO CON, 12/05/2018, 14:43. [facility], CR, XR CHEST 2V, 07/03/2018, 8:36. [facility], CR, XR CHEST 2V, 09/02/2019, 12:45. FINDINGS: Surgical changes and devices: Cholecystectomy clips are seen. Lungs and pleura: Perihilar infiltrates are seen, with generalized interstitial prominence. No pneumothorax is seen. No large pleural effusion. Mediastinum: Moderate cardiomegaly is seen. Prominent and tortuous it is seen of the aorta. Bones and chest wall: No suspicious bony abnormalities. Age-appropriate bony degenerative changes are seen. Soft tissues appear unremarkable. IMPRESSION: Cardiomegaly and interstitial prominence can be seen. Please correlate with patient presentation, physical examination findings, and laboratory values for congestive heart failure. Postoperative and degenerative changes are seen. Dictated by: Donta Atkins M.D. on 08/14/2020 at 11:48 Approved by: Donta Atkins M.D. on 08/14/2020 at 11:49
== END ==
PROVIDERS: PCP Internal Medicine; Referring Provider Internal Medicine; Visit Provider Internal Medicine
DX: R05 Cough (principal); I51.7 Cardiomegaly
CPT/HCPCS: 71046

== ENCOUNTER → 2020-08-16 12:44 | Outpatient (CLI) | payer MEDICARE, MEDICAID, SELFPAY ==
[2020-08-18 08:26] LABS: COVID19 Sendout Not Detected (Not Detect)
== END ==
PROVIDERS: PCP Internal Medicine; Visit Provider Physician Assistant
DX: Z11.59 Encounter for screening for other viral diseases (principal)
CPT/HCPCS: 87635

== ENCOUNTER → 2020-09-06 07:47 | Outpatient (CLI) | payer MEDICARE, MEDICAID, SELFPAY ==
--- NOTE | 2020-09-06 | DI.ECHO.S_ITS ---
[place] [facility]---------+ [facility] +---------+ : : [address] : : : : [id number] : : : : Phone: [phone] Echocardiogram Report + + :Name: TEJA SANDOVAL Study Date: 09/06/2020 Height: 65 in : :[facility] Weight: 233 lb : : Gender: Female BSA: 2.1 m2 : :: 1950 Age: 70 yrs BP: 152/88 mmHg: :Reason For Study: PULMONARY EDEMA : :Ordering Physician: LUIDN ACEVEDOPerformed By: Agnes Mg : :Referring: LUDIN ACEVEDO : + + Interpretation Summary Mild concentric left ventricular hypertrophy with ejection fraction 60-65%. Mild mitral annular calcification. Mild mitral regurgitation. Mildly enlarged ascending aorta. Comparison is made with the echocardiogram of 04/09/2017, there has been no significant change. Procedure: A two-dimensional transthoracic echocardiogram with color flow and Doppler was performed. Comparison is made with the echocardiogram of 04/09/2017. The heart rate ranged between 86-94 bpm during the study. Left Ventricle: The left ventricle is normal in size. There is mild concentric left ventricular hypertrophy. The ejection fraction is estimated to be 60-65%. There are no focal wall motion abnormalities. Diastolic function could not be accurately assessed due to unobtainable data. Right Ventricle: The right ventricle is normal in size and function. Atria: Both atria are normal in size. There is no Doppler evidence for an interatrial shunt. Mitral Valve: The mitral valve leaflets appear mildly thickened, but open well. There is mild mitral annular calcification. There is mild mitral regurgitation. Aortic Valve: The aortic valve opens well. There is no aortic valve stenosis. No aortic regurgitation is present. Tricuspid Valve: The tricuspid valve is normal in structure and function. There is trace tricuspid regurgitation. Pulmonic Valve: The pulmonic valve is not well visualized. There is no pulmonic valvular regurgitation. Great Vessels: The aortic root is normal size. The ascending aorta is mildly enlarged. The IVC is of normal diameter and collapses greater than 50% with a sniff. This suggests a low right atrial pressure of 3 mm Hg. Pericardium/ Pleura There is no pericardial effusion. There is no pleural effusion. MMode/2D Measurements & Calculations LVIDd: 3.7 cm LVOT diam: 2.5 cm LVIDs: 2.5 cm Ao root diam: 3.5 cm FS: 32.9 % asc Aorta Diam: 3.6 cm EPSS: 1.2 cm Ao Arch Diam (Prox Trans): 3.0 cm IVSd: 1.2 cm LVPWd: 1.2 cm LV dunn. diameter/BSA (cm/m^2): 1.8 LV sys. diameter/BSA (cm/m^2): 1.2 LA A2 area: 21.6 cm2 RA long axis: 4.9 cm LA A4 area: 19.8 cm2 RA area: 13.4 cm2 LA length (vol): 5.6 cm RA vol: 31.2 ml LA vol: 65.1 ml RA : 14.8 ml/m2 LA vol index: 30.8 ml/m2 IVC diam: 1.7 cm RVD1 (basal): 3.2 cm TAPSE: 2.0 cm Doppler Measurements & Calculations Ao V2 max: 122.9 cm/sec LVOT Max Noah: 119.9 cm/sec Ao V2 mean: 85.5 cm/sec LV V1 max P.8 mmHg Ao max P.0 mmHg LV V1 VTI: 21.2 cm Ao mean P.3 mmHg ROGER(I,D): 5.1 cm2 Ao V2 VTI: 20.5 cm ROGER(V,D): 4.9 cm2 sev ratio: 1.0 ROGER indexed to BSA (cm^2/m^2): 2.4 Med Peak E' Noah: 5.7 cm/sec PA V2 max: 58.6 cm/sec Lat Peak E' Noah: 4.7 cm/sec PA V2 mean: 41.0 cm/sec PA mean P.78 mmHg PA pr(Accel): 20.8 mmHg SV(LVOT): 105.4 ml Electronically signed by: Gil Dhaliwal on Reading Physician:09/06/2020 04:54 PM
== END ==
PROVIDERS: PCP Internal Medicine; Referring Provider Internal Medicine; Visit Provider Internal Medicine
DX: J81.0 Acute pulmonary edema (principal)
CPT/HCPCS: 93306

== ENCOUNTER → 2020-09-20 10:04 | Outpatient (CLI) | payer MEDICARE, MEDICAID, SELFPAY ==
--- NOTE | 2020-09-20 10:05 | DI.CT.S_ITS ---
PROCEDURE: CT CHEST WO CON INDICATIONS: Cough, history of sarcoidosis and pericardial effusion TECHNIQUE: Noncontrast 5 mm thick sections acquired from the pulmonary apices to the posterior costophrenic angles. 1 mm lung window, 5 mm thick coronal and sagittal and 7 mm axial MIP reformats were then acquired. For radiation dose reduction, the following was used: automated exposure control, adjustment of mA and/or kV according to patient size. COMPARISON: [facility], CT, CT CHEST WO CON, 12/05/2018, 14:43. FINDINGS: Image quality: Excellent. Lungs and pleura: No acute air space opacities. No pleural effusions or pneumothorax. Central and peripheral airways are patent and normal in caliber. Mediastinum: Heart size is normal. No pericardial effusion. Scattered nonenlarged mediastinal lymph nodes are present. No bulky mediastinal or hilar adenopathy by size criteria. Thoracic aorta and central pulmonary arteries are normal in size. Esophagus is normal in caliber. Trace aortic arch atherosclerosis. No hiatal hernia. Bones and chest wall: No suspicious bony lesions. No vertebral body compression fractures. Multilevel thoracic disc degeneration. No axillary or supraclavicular adenopathy by size criteria. Thyroid gland is unremarkable . Abdomen: Visualized upper abdominal solid organs demonstrate mild hepatomegaly and hepatic steatosis. There is a bilobed left lobe liver cyst. IMPRESSION: 1. No adenopathy in the chest. 2. No pulmonary parenchymal disease. 3. Hepatic steatosis and hepatomegaly. Dictated by: Vee Hunt M.D. on 09/20/2020 at 11:32 Approved by: Vee Hunt M.D. on 09/20/2020 at 12:50
== END ==
PROVIDERS: PCP Internal Medicine; Referring Provider Internal Medicine; Visit Provider Internal Medicine
DX: R05 Cough (principal); K76.0 Fatty (change of) liver, not elsewhere classified
CPT/HCPCS: 71250

== ENCOUNTER → 2020-11-11 19:03 | Outpatient (ROUT) | payer MEDICARE, MEDICAID, SELFPAY ==
[2020-11-11 19:37] LABS: C-Reactive Protein Quant 2.3 mg/dL (<1.0)
[2020-11-11 19:38] LABS: Erythrocyte Sedimentation Rate 42 MM/HR (0-20)
== END ==
PROVIDERS: PCP Internal Medicine; Visit Provider Internal Medicine
DX: R51.9 Headache, unspecified (principal)
CPT/HCPCS: 85651; 86140

== ENCOUNTER → 2020-12-08 17:11 | Outpatient (CLI) | payer MEDICARE, MEDICAID, SELFPAY ==
--- NOTE | 2020-12-08 | DI.MG.S_ITS ---
BILATERAL DIGITAL SCREENING MAMMOGRAM 3D/2D WITH CAD: 12/08/2020 CLINICAL: Routine screening. Comparison is made to exams dated: 12/27/2018 mammogram, 12/24/2017 mammogram, 12/12/2017 mammogram, and 11/28/2017 mammogram - [facility]. The tissue of both breasts is predominantly fatty. Current study was also evaluated with a Computer Aided Detection (CAD) system. No significant masses, calcifications, or other findings are seen in either breast. There has been no significant interval change. IMPRESSION: NEGATIVE There is no mammographic evidence of malignancy. A 1 year screening mammogram is recommended. This exam was interpreted at Station ID: [id number]. NOTE: For mammograms, a report in lay terms will be sent to the patient. Approximately 15% of breast malignancies will not be visualized mammographically. In the management of a palpable breast mass, a negative mammogram must not discourage biopsy of a clinically suspicious lesion. Electronically Signed By: Filipe Villanueva acr/penrad:12/09/2020 08:31:39 letter sent: Normal Exam ACR BI-RADS Category 1: Negative 3341F
== END ==
PROVIDERS: PCP Internal Medicine; Referring Provider Internal Medicine; Visit Provider Internal Medicine
DX: Z12.31 Encounter for screening mammogram for malignant neoplasm of breast (principal)
CPT/HCPCS: 77063; 77067

== ENCOUNTER 2023-07-02 07:46 | Emergency (ER) | payer MEDICARE, MEDICAID, SELFPAY ==
[2023-07-02 07:52] VITALS: BP 148/76; PULSE 110; RESP 18; TEMP 36.6; O2SAT 98; BMI 33.6
--- NOTE | 2023-07-02 08:13 | DI.RAD.S_ITS ---
PROCEDURE: XR ABDOMEN 1V INDICATIONS: constipation TECHNIQUE: One view of the abdomen acquired. COMPARISON: None. FINDINGS: Surgical changes and devices: Status post cholecystectomy. Bowel: Bowel gas pattern is normal. Increased stool is seen throughout the colon. Soft tissues: No suspicious abdominal calcifications. Visualized solid organ contours appear normal in size. Bones: No suspicious bony lesions. Degenerative changes of both hips. Degenerative changes of the lumbar spine. IMPRESSION: Constipation. Dictated by: Filipe Villanueva M.D. on 07/02/2023 at 8:54 Approved by: Filipe Villanueva M.D. on 07/02/2023 at 8:55
--- NOTE | 2023-07-02 08:14 | ED.GENADULT ---
HPI - General Adult General Chief complaint: Abdominal Pain Stated complaint: no BM for a few months Time Seen by Provider: 07/02/23 08:09 Source: patient Mode of arrival: Family Vehicle History of Present Illness HPI narrative: 73-year-old female who is here stating that she has not had a bowel movement in ?a couple months? she states that she is urinating fine. Has not had any vomiting. Has been doing laxatives and stool softeners without any improvement. She had a similar episode several years ago. She states she was placed on ?probiotics? and her symptoms improve. She states that her sides are hurting. Related Data Home Medications Medication Instructions Recorded Confirmed Glucose: Home Monitoring Kit 1 kit miscellaneous DIRECTED 08/09/18 08/09/18 Glucose: Test Strips 1 str miscellaneous BID 08/09/18 08/09/18 Previous Rx's Medication Instructions Recorded duloxetine 60 mg capsule,delayed 60 mg PO QDAY #30 caps 01/16/18 release duloxetine 30 mg capsule,delayed 30 mg PO QDAY #90 caps 01/24/18 release losartan 100 mg tablet 100 mg PO QDAY #90 tabs 02/22/18 chlorthalidone 25 mg tablet 25 - 50 mg PO QDAY #60 tabs 06/05/18 metformin 500 mg tablet 500 mg PO TID #270 tabs 07/22/18 (Glucophage) cyclobenzaprine 10 mg tablet 10 mg PO Q8H PRN muscle spasm #10 08/09/18 tabs alendronate 70 mg tablet 70 mg PO QWEEK #12 tabs 03/06/19 peg 3350-electrolytes 236 240 ml PO Q10M #4,000 mL 07/02/23 gram-22.74 gram-6.74 gram-5.86 gram solution (Golytely) Allergies Allergy/AdvReac Type Severity Reaction Status Date / Time cetirizine [CETIRIZINE] AdvReac Severe SLEEPINESS Unverified 03/18/18 11:25 THAT LASTED FOR ABOUT 2 1/2 DAYS Review of Systems Constitutional Constitutional: Reports system reviewed and no additional complaints, except as documented Gastrointestinal Gastrointestinal: Reports system reviewed and no additional complaints, except as documented Genitourinary Genitourinary: Reports system reviewed and no additional complaints, except as documented Integumentary/Breasts Skin/Breast: Reports system reviewed and no additional complaints, except as documented Patient History Medical History Degenerative disc disease (Unknown) Diabetes (Unknown) Hearing loss (Unknown) Hypertension (Unknown) Mediastinal lymphadenopathy (Unknown) Obstructive sleep apnea (Unknown) Peripheral neuropathy (Unknown) Sarcoidosis (Unknown) Surgical History (Updated 08/09/18 @ 13:08 by Anita Uribe PA-C) H/O tubal ligation (1977) History of cholecystectomy (1979) History of tonsillectomy (~1950) Hx of tympanostomy tubes Family History (Updated 03/14/18 @ 17:02 by Zoey Amezcua LPN) Father Cancer Mother Cancer Social History Smoking Status: Never smoker Smoking Status: Never smoker alcohol intake frequency: holidays/special occasions only Substance Use Type: does not use Exam Initial Vital Signs Initial Vital Signs: Vital Signs Temperature 97.8 F 07/02/23 07:52 Pulse Rate 110 H 07/02/23 07:52 Respiratory Rate 18 07/02/23 07:52 Blood Pressure 148/76 H 07/02/23 07:52 Pulse Oximetry 98 07/02/23 07:52 Oxygen Delivery Method Room Air 07/02/23 07:52 HENMT Head: normal to inspection and normocephalic GI Inspection: normal to inspection and non-distended Palpation: soft Other: Umbilical hernia present Skin General: no rashes or lesions noted Neuro General: patient alert, patient awake and moves all extremities Course Orders Ordered: ED Orders 07/02/23 08:13 XR abdomen 1V Stat Vital Signs Vital signs: Vital Signs - 8 hr 07/02/23 07:52 Temperature 97.8 F Pulse Rate 110 H Respiratory Rate 18 Blood Pressure 148/76 H Pulse Oximetry 98 Oxygen Delivery Method Room Air Medical Decision Making Imaging Data Abdominal x-ray: Radiologist's Impression: PROCEDURE:? XR ABDOMEN 1V ? INDICATIONS:? constipation ? TECHNIQUE:? One view of the abdomen acquired.? ? COMPARISON:? None. ? FINDINGS:? ? Surgical changes and devices:? Status post cholecystectomy. ? Bowel:? Bowel gas pattern is normal.? Increased stool is seen throughout the colon. ? Soft tissues:? No suspicious abdominal calcifications.? Visualized solid organ contours appear normal in size.? ? Bones:? No suspicious bony lesions.? Degenerative changes of both hips.? Degenerative changes of the lumbar spine. ? IMPRESSION:? Constipation. MDM Narrative Medical decision making narrative: Patient states she has not had a bowel movement in ?months? however abdomen is soft. She does have bowel sounds. X-ray shows constipation but no signs of overt obstructions. She is not been vomiting. She does have an appointment with GI but that is not for several weeks. Plan will be to start her on essentially a bowel prep for colonoscopy to try to help improve the symptoms. No indication for admission to the hospital. Discharge Plan Departure Patient Disposition: Home Clinical Impression: Constipation Instructions: DI for Constipation Activity Restrictions/Additional Instructions: I do recommend that you take the medication as directed. I would not be surprised if your next bowel movement is somewhat uncomfortable because of the constipation. You may need to continue to take laxatives even after having a bowel movement. Keep all of your scheduled medical appointments. Contact your primary doctor for follow-up. Prescriptions: New peg 3350-electrolytes [Golytely] 236-22.74-6.74 -5.86 gram recon soln 240 ml PO Q10M Qty: 4000 0RF Rx Instructions: until fecal effluent is clear No Action duloxetine 60 MG capsule,delayed release(DR/EC) 60 mg PO QDAY Qty: 30 3RF duloxetine 30 MG capsule,delayed release(DR/EC) 30 mg PO QDAY Qty: 90 3RF losartan 100 mg tablet 100 mg PO QDAY Qty: 90 1RF chlorthalidone 25 mg tablet 25 - 50 mg PO QDAY Qty: 60 0RF metformin [Glucophage] 500 mg tablet 500 mg PO TID Qty: 270 0RF alendronate 70 mg tablet 70 mg PO QWEEK Qty: 12 0RF Patient Comments: SUNDAY--SUNDAY IF SHE FORGETS ON SUNDAY cyclobenzaprine 10 mg tablet 10 mg PO Q8H PRN (Reason: muscle spasm) Qty: 10 0RF Rx Instructions: 1/2-1 tab up to every 8 hours prn neck pain/spasm Glucose: Home Monitoring Kit 1 kit miscellaneous DIRECTED Glucose: Test Strips 1 str miscellaneous BID Referrals: Danette Barajas MD [Primary Care Provider] - Stand Alone Forms: Patient Portal/API
[2023-07-02 09:45] VITALS: BP 138/74; PULSE 99; O2SAT 98
== END 2023-07-02 09:46 | disposition home or self-care (01) ==
PROVIDERS: Emergency Provider Emergency Medicine; PCP Internal Medicine
DX: K59.00 Constipation, unspecified (principal)
CPT/HCPCS: 74018; 99281; 99283

== ENCOUNTER 2023-08-03 15:33 | Inpatient (IN) | payer MEDICARE, MEDICAID, SELFPAY ==
[2023-08-03] VITALS (60 sets, daily range): BP systolic 78–221; BP diastolic 43–164; PULSE 115–192; RESP 21–53; TEMP 37.3–39.4; O2SAT 87–100; BMI 31.3; BMI 31.6
[2023-08-03] MEDS: SODIUM CHLORIDE 0.9% 1,000 ML 1000 ML IV (16:01)
--- NOTE | 2023-08-03 16:05 | ED.WEAKNESS ---
HPI - Weakness General Chief complaint: Fever Stated complaint: Weakness T-3 Time Seen by Provider: 08/03/23 15:54 History of Present Illness HPI Narrative: Patient is a 73-year-old female history of hypertension diabetes presenting today with increasing weakness. She apparently lives by herself son checks on her once a week son checked on her today she is extremely weak unable to get out of her chair. She was found saturated in urine she had a depends on which it was clear she had not been changed in multiple days. She reports that she is had chronic symptoms for a few months. She denies any chest pain or palpitations so she is noted to be extremely tachycardic heart rate in the 130s but not hypotensive. Related Data Home Medications Medication Instructions Recorded Confirmed Glucose: Home Monitoring Kit 1 kit miscellaneous DIRECTED 08/09/18 08/09/18 Glucose: Test Strips 1 str miscellaneous BID 08/09/18 08/09/18 Previous Rx's Medication Instructions Recorded duloxetine 60 mg capsule,delayed 60 mg PO QDAY #30 caps 01/16/18 release duloxetine 30 mg capsule,delayed 30 mg PO QDAY #90 caps 01/24/18 release losartan 100 mg tablet 100 mg PO QDAY #90 tabs 02/22/18 chlorthalidone 25 mg tablet 25 - 50 mg (1 - 2 x 25 mg) PO QDAY 06/05/18 #60 tabs metformin 500 mg tablet 500 mg PO TID #270 tabs 07/22/18 (Glucophage) cyclobenzaprine 10 mg tablet 10 mg PO Q8H PRN muscle spasm #10 08/09/18 tabs alendronate 70 mg tablet 70 mg PO QWEEK #12 tabs 03/06/19 peg 3350-electrolytes 236 240 ml PO Q10M #4,000 mL 07/02/23 gram-22.74 gram-6.74 gram-5.86 gram solution (Golytely) Allergies Allergy/AdvReac Type Severity Reaction Status Date / Time cetirizine [CETIRIZINE] AdvReac Severe SLEEPINESS Verified 08/03/23 16:57 THAT LASTED FOR ABOUT 2 1/2 DAYS Review of Systems Review of Systems ROS Unobtainable: All systems reviewed & are unremarkable except as noted in HPI and below Patient History Medical History Obstructive sleep apnea (Unknown) Hearing loss (Unknown) Sarcoidosis (Unknown) Mediastinal lymphadenopathy (Unknown) Degenerative disc disease (Unknown) Diabetes (Unknown) Hypertension (Unknown) Peripheral neuropathy (Unknown) Surgical History Hx of tympanostomy tubes History of cholecystectomy (1979) History of tonsillectomy (~1950) H/O tubal ligation (1977) Family History Father Cancer Mother Cancer Social History Smoking Status: Never smoker Smoking Status: Never smoker alcohol intake frequency: holidays/special occasions only Substance Use Type: does not use Exam Initial Vital Signs Initial Vital Signs: Vital Signs Blood Pressure 186/106 H 08/03/23 15:46 GENERAL: 73-year-old female appears ill HEENT: Head atraumatic,EOMI, pupils reactive, face symmetric, dry mucous membranes CARDIOVASCULAR: Regular rate and rhythm without murmurs, rubs or gallops. RESPIRATORY: Breath sounds equal bilaterally, no wheezes rales or rhonchi. ABDOMEN: Mildly distended mild diffuse tenderness no guarding no rebound no localization of EXTREMITIES: Normal range of motion, no clubbing or edema. Neurovascularly intact. Bilateral distal pedal pulses are felt and NEUROLOGICAL: Alert and oriented x4.Normal gait and speech. Cranial nerves II through XII grossly intact. Moving extremities lifting both right and left leg epic professional strength equal bilaterally SKIN: Lower extremities cool and mottled Procedures Central Line Placement Right IJ: Patient Placed on Monitor/Pulse Ox: Yes MD Prep: mask, gown and gloves Central Line Prep: Chlorhexidine scrub and sterile drapes applied Local Anesthetic: lidocaine 1% Amount of anesthesia used (mL): 5 Ultrasound Used for Placement: Yes Central Line Lumen Inserted: triple Post Procedure: good blood return, all ports aspirated, flushed, capped, sterile dressing applied and line stabilization device Post Procedure X-Ray: tip of catheter in good position and no pneumothorax seen Patient Tolerated Procedure: Well and No complications Course Orders Ordered: ED Orders 08/03/23 16:00 BNP [NT-proBNP (BNP-Adult 18+)] Stat COVID19 -Nasal RAPID Stat Complete Blood Count AUTO DIFF Stat Comprehensive Metabolic Panel Stat Ictotest Urine Stat Lactate (Lactic Acid) Stat Lipase Stat PTT Partial Thromboplastin Macario Stat Procalcitonin Stat Prothrombin Time INR Stat Troponin & CK Cardiac Panel Stat Urinalysis and Microscopic Stat 08/03/23 16:01 EKG-12 Lead Stat 08/03/23 16:14 CT chest abd pel w con Stat 08/03/23 16:41 Blood Culture Stat 08/03/23 17:12 Respiratory Panel (Film Array) Stat 08/03/23 17:45 Chest [XR chest 1V] Stat Acetaminophen (Acetaminophen 325 Mg Tablet) 650 mg PO Q6H PRN PRN Reason: Fever/Mild Pain (1-3) Enoxaparin Sodium (Enoxaparin 40 Mg/0.4 Ml Syringe) 40 mg SUBCUT DAILY CARMELO Famotidine (Famotidine 20 Mg/2 Ml Vial) 20 mg IV BID CARMELO Hydromorphone HCl (Hydromorphone 0.5 Mg Inj) 0.5 mg IV Q2H PRN PRN Reason: Pain, Severe (7-10) Sodium Chloride (Normal Saline 0.9%) 1,779 mls @ 593 mls/hr 30 ml/kg infuse over 3 hr (1779 ml) IV NOW ONE Stop: 08/03/23 19:19 Last Infusion: 08/03/23 18:24 Dose: Infused Documented By: Admin: 08/03/23 17:02 Dose: 593 mls/hr Documented By: PAULA NOREPINEPHRINE BITARTRATE/D5W (Levophed) 4 mg in 250 mls @ 32.963 mls/hr IV TITRATE CARMELO; Protocol Last Titration: 08/03/23 18:24 Dose: 0.1 mcg/kg/min, 32.963 mls/hr Documented By: Admin: 08/03/23 18:19 Dose: 0.1 mcg/kg/min, 32.963 mls/hr Documented By: PAULA Sodium Chloride (Normal Saline 0.9%) 1,000 mls @ 100 mls/hr IV CONT CARMELO Dextrose/Sodium Chloride (Dextrose 5%-0.45% Ns) 1,000 mls @ 100 mls/hr IV CONT CARMELO Piperacillin Sod/Tazobactam (Sod 3.375 gm/ Sodium Chloride) 100 mls @ 25 mls/hr IV Q8H CARMELO Vancomycin HCl (Vancomycin) 1,250 mg in 250 mls @ 250 mls/hr IV Q12H [facility] Naloxone HCl (Naloxone 0.4 Mg/Ml Vial) 0.2 mg IV Q2MIN PRN PRN Reason: Opiate Reversal Ondansetron HCl (Ondansetron 4 Mg/2 Ml Inj) 4 mg IV NOW PRN PRN Reason: Nausea And Vomiting Ondansetron HCl (Ondansetron 4 Mg Odt) 4 mg SL NOW PRN PRN Reason: Nausea And Vomiting Oxycodone HCl (Oxycodone Ir 5 Mg Tablet) 5 mg PO Q3H PRN PRN Reason: Pain, Moderate (4-6) Vancomycin HCl (Vancomycin Trough) 1 request MISC 0530 ONE Stop: 08/05/23 05:31 Vancomycin HCl (Vancomycin Peak) 1 request MISC 0800 ONE Stop: 08/05/23 08:01 Discontinued Medications Sodium Chloride (Normal Saline 0.9%) 1,000 mls @ 1,000 mls/hr IV BOLUS ONE Stop: 08/03/23 17:00 Last Infusion: 08/03/23 17:03 Dose: Infused Documented By: Admin: 08/03/23 16:01 Dose: 1,000 mls/hr Documented By: DAYLIN Piperacillin Sod/Tazobactam (Sod 4.5 gm/ Sodium Chloride) 100 mls @ 200 mls/hr IV NOW ONE Stop: 08/03/23 16:42 Last Infusion: 08/03/23 17:25 Dose: Infused Documented By: Admin: 08/03/23 16:55 Dose: 200 mls/hr Documented By: PAULA Vancomycin HCl (Vancomycin) 1,250 mg in 250 mls @ 250 mls/hr IV NOW ONE Stop: 08/03/23 17:41 Last Infusion: 08/03/23 18:24 Dose: 250 mls/hr Documented By: Admin: 08/03/23 17:32 Dose: 250 mls/hr Documented By: PAULA Acetaminophen (Ofirmev) 1,000 mg in 100 mls @ 400 mls/hr IV NOW ONE Stop: 08/03/23 17:10 Last Infusion: 08/03/23 17:24 Dose: Infused Documented By: Admin: 08/03/23 16:59 Dose: 400 mls/hr Documented By: KF Piperacillin Sod/Tazobactam (Sod 3.375 gm/ Sodium Chloride) 100 mls @ 25 mls/hr IV Q8H [facility] Vital Signs Vital signs: Vital Signs - 8 hr 08/03/23 15:46 08/03/23 15:50 08/03/23 15:55 Temperature 99.6 F Pulse Rate 192 H 152 H Respiratory Rate 25 H 26 H Blood Pressure 186/106 H 186/106 H Pulse Oximetry 90 L 97 Oxygen Delivery Method Room Air Room Air Oxygen Flow Rate 08/03/23 15:55 08/03/23 16:00 08/03/23 16:04 Temperature Pulse Rate 137 H 139 H Respiratory Rate 32 H 30 H Blood Pressure 196/97 H Pulse Oximetry 90 L 95 Oxygen Delivery Method Room Air Nasal Cannula Oxygen Flow Rate 2 08/03/23 16:04 08/03/23 16:05 08/03/23 16:10 Temperature Pulse Rate 143 H 141 H 145 H Respiratory Rate 31 H 28 H 42 H Blood Pressure Pulse Oximetry 94 95 92 Oxygen Delivery Method Oxygen Flow Rate 08/03/23 16:15 08/03/23 16:16 08/03/23 16:16 Temperature Pulse Rate 155 H 156 H Respiratory Rate 42 H 47 H Blood Pressure 202/124 H Pulse Oximetry 94 94 Oxygen Delivery Method Oxygen Flow Rate 08/03/23 16:20 08/03/23 16:20 08/03/23 16:23 Temperature Pulse Rate 155 H Respiratory Rate 33 H Blood Pressure 221/103 H 216/164 H Pulse Oximetry 91 Oxygen Delivery Method Oxygen Flow Rate 08/03/23 16:23 08/03/23 16:25 08/03/23 16:30 Temperature 99.1 F 99.7 F H 100.4 F H Pulse Rate 159 H 163 H 166 H Respiratory Rate 30 H 30 H 35 H Blood Pressure Pulse Oximetry 87 L 88 L 88 L Oxygen Delivery Method Nasal Cannula Oxygen Flow Rate 4 4 4 08/03/23 16:35 08/03/23 16:35 08/03/23 16:37 Temperature 101.1 F H 101.3 F H Pulse Rate 161 H 160 H Respiratory Rate 29 H 34 H Blood Pressure 168/110 H Pulse Oximetry Oxygen Delivery Method Oxygen Flow Rate 08/03/23 16:38 08/03/23 16:40 08/03/23 16:40 Temperature 101.8 F H Pulse Rate 156 H Respiratory Rate 29 H Blood Pressure 163/102 H 206/153 H Pulse Oximetry 87 L Oxygen Delivery Method Oxygen Flow Rate 08/03/23 16:41 08/03/23 16:41 08/03/23 16:45 Temperature 102.0 F H Pulse Rate 156 H Respiratory Rate 27 H Blood Pressure 213/152 H 173/79 H Pulse Oximetry 95 Oxygen Delivery Method Nasal Cannula Oxygen Flow Rate 4 08/03/23 16:45 08/03/23 16:50 08/03/23 16:53 Temperature 102.4 F H 102.6 F H 102.7 F H Pulse Rate 154 H 152 H 150 H Respiratory Rate 26 H 24 26 H Blood Pressure Pulse Oximetry 97 100 100 Oxygen Delivery Method Oxygen Flow Rate 4 08/03/23 16:53 08/03/23 16:55 08/03/23 16:55 Temperature 102.7 F H Pulse Rate 149 H Respiratory Rate 25 H Blood Pressure 173/76 H 143/64 H Pulse Oximetry 100 Oxygen Delivery Method Nasal Cannula Oxygen Flow Rate 4 08/03/23 17:00 08/03/23 17:00 08/03/23 17:05 Temperature 102.9 F H Pulse Rate 145 H Respiratory Rate 26 H Blood Pressure 125/58 L 107/54 L Pulse Oximetry 100 Oxygen Delivery Method Nasal Cannula Oxygen Flow Rate 4 08/03/23 17:05 08/03/23 17:10 08/03/23 17:10 Temperature 102.9 F H 102.9 F H Pulse Rate 140 H 141 H Respiratory Rate 26 H 28 H Blood Pressure 106/49 L Pulse Oximetry 100 100 Oxygen Delivery Method Oxygen Flow Rate 2 08/03/23 17:15 08/03/23 17:15 08/03/23 17:20 Temperature 102.9 F H Pulse Rate 141 H Respiratory Rate 27 H Blood Pressure 104/52 L 92/53 L Pulse Oximetry 100 Oxygen Delivery Method Oxygen Flow Rate 08/03/23 17:20 08/03/23 17:25 08/03/23 17:25 Temperature 102.9 F H 102.7 F H Pulse Rate 137 H 137 H Respiratory Rate 26 H 27 H Blood Pressure 96/54 L Pulse Oximetry 99 100 Oxygen Delivery Method Nasal Cannula Oxygen Flow Rate 2 2 08/03/23 17:30 08/03/23 17:30 08/03/23 17:35 Temperature 102.6 F H Pulse Rate 138 H Respiratory Rate 30 H Blood Pressure 97/54 L 98/52 L Pulse Oximetry Oxygen Delivery Method Oxygen Flow Rate 2 08/03/23 17:35 08/03/23 17:40 08/03/23 17:40 Temperature 102.4 F H 102.0 F H Pulse Rate 131 H 128 H Respiratory Rate 24 26 H Blood Pressure 101/47 L Pulse Oximetry Oxygen Delivery Method Oxygen Flow Rate 08/03/23 17:45 08/03/23 17:45 08/03/23 17:50 Temperature 101.8 F H 101.5 F H Pulse Rate 125 H 123 H Respiratory Rate 25 H 26 H Blood Pressure 91/46 L Pulse Oximetry 99 98 Oxygen Delivery Method Nasal Cannula Nasal Cannula Oxygen Flow Rate 2 2 08/03/23 17:50 Temperature Pulse Rate Respiratory Rate Blood Pressure 94/50 L Pulse Oximetry Oxygen Delivery Method Oxygen Flow Rate MDM - Weakness Lab Data 08/03/23 16:00 08/03/23 16:00 Labs: Lab Results 08/03/23 08/03/23 08/03/23 Range/Units 16:00 16:00 17:12 WBC 14.5 H (4.5-11.0) X10^3/uL RBC 5.83 H (4.0-5.2) X10^6/uL Hgb 15.2 (12.0-16.0) g/dL Hct 46.8 H (36-46) % MCV 80.4 (80-100) fL MCH 26.0 (26-34) PG MCHC 32.4 (30-36) % RDW 15.4 H (11.6-14.8) % Plt Count 118 L (150-400) X10^3/uL Neut % (Auto) 93.5 H (50-75) % Lymph % (Auto) 3.9 L (25-40) % [place] % (Auto) 2.0 L (3-14) % Eos % (Auto) 0.5 L (2-4) % Baso % (Auto) 0.1 (0-2) % Neut # (Auto) 29222 H (7431-2265) /uL Lymph # (Auto) 600 L (5984-8898) /uL [place] # (Auto) 300 (0-900) /uL Eos # (Auto) 100 (0-450) /uL Baso # (Auto) 0 (0-100) /uL PT 17.1 H (10.1-12.7) SECONDS INR 1.5 H (0.9-1.3) APTT 33 (26-36) SECONDS Sodium 131 L (137-145) mmol/L Potassium 3.5 (3.4-5.1) mmol/L Chloride 89 L (98-107) mmol/L Carbon Dioxide 27 (22-32) mmol/L BUN 26 H (7-17) mg/dL Creatinine 0.54 (0.52-1.04) mg/dL Estimated GFR > 60 (>60) mL/min BUN/Creatinine Ratio 48.1 H (6-22) Glucose 196 H (80-110) mg/dL Lactate 5.0 H* (0.7-2.1) mmol/L Calcium 10.0 (8.4-10.2) mg/dL Total Bilirubin 0.9 (0.2-1.3) mg/dL AST 43 H (14-36) IU/L ALT 83 H (<35) IU/L Alkaline Phosphatase 229 H (38-126) U/L Total Creatine Kinase 43 (30-135) U/L Troponin I < 0.012 (0.01-0.034) ng/mL NT-Pro-B Natriuret Pep 2120 H Cancelled (<125) pg/mL Total Protein 7.7 (6.3-8.2) g/dL Albumin 3.4 L (3.5-5.0) g/dL Globulin 4.3 H (1.7-4.1) g/dL Albumin/Globulin Ratio 0.8 L (1.0-2.8) Lipase 63 (23-300) U/L Procalcitonin 1.80 H (<0.5) ng/mL Urine Color Yellow Urine Appearance Clear Urine pH 5.5 (4.5-8.0) Ur Specific [place] 1.020 (1.000-1.035) Urine Protein 1+ H (Negative) Urine Glucose (UA) Trace H (Negative) g/dL Urine Ketones 1+ H (NEGATIVE) Urine Occult Blood Trace-intact (Negative) Urine Nitrate Negative (Negative) Urine Bilirubin 1+ H (NEGATIVE) Ur Bilirubin Confirm Negative (Negative) Urine Urobilinogen 1.0 (0.2) E.U./dL Ur Leukocyte Esterase Negative (NEGATIVE) Urine RBC None seen (0-5/HPF) Urine WBC 1-5/hpf (0-5/HPF) Ur Squamous Epith Cells 1-5 /hpf (0-5/HPF) Urine Bacteria None seen (None) Ur Culture Indicated? Cult not indicated Chlamy pneumoniae PCR Not detected (Not Detect) Adenovirus (PCR) Not detected (Not Detect) B.parapertussis DNA PCR Not detected (Not Detecte) Coronavirus OC43 (PCR) Not detected (Not Detect) Coronavirus HKU1 (PCR) Not detected (Not Detect) Coronavirus 229E (PCR) Not detected (Not Detect) SARS-CoV-2 (PCR) Negative Not detected (Negative) Coronavirus NL63 (PCR) Not detected (Not Detect) Human Metapneumovir PCR Not detected (Not Detect) Influenza Type A (PCR) Not detected (Not Detect) Influenza Type B (PCR) Not detected (Not Detect) M. pneumoniae (PCR) Not detected (Not Detect) Parainfluenza 1 (PCR) Not detected (Not Detect) Parainfluenza 2 (PCR) Not detected (Not Detect) Parainfluenza 3 (PCR) Not detected (Not Detect) Parainfluenza 4 (PCR) Not detected (Not Detect) RSV (PCR) Not detected (Not Detect) Entero/Rhino (PCR) Not detected (Not Detect) Imaging Data CT scan - abdomen/pelvis: Radiologist Impression: PROCEDURE: CT CHEST ABD PEL W CON INDICATIONS: weakness. Right flank pain. Dysuria. Chest pain. TECHNIQUE: After the administration of intravenous contrast, 5 mm thick sections acquired from the lung apices to the symphysis. 5 mm coronal and sagittal reformats were performed, with additional 7 mm MIP reformats through the lungs. For radiation dose reduction, the following was used: automated exposure control, adjustment of mA and/or kV according to patient size. COMPARISON: [facility], CT, CT CHEST WO CON, 09/20/2020, 10:09. FINDINGS: Chest: Cardiovascular: Heart size is enlarged. Aortic vascular calcification without aneurysm. Lungs and pleural spaces: Moderate right pleural effusion. Left lung clear. Septal thickening both lung apices reflect vascular congestion. Lymph nodes: No mediastinal, hilar or axillary adenopathy. Mediastinum: Unremarkable. No hiatal hernia. Thyroid within normal limits. Chest Wall and Bones: In wedge-shaped compression fractures at T11 and L1 noted with L1 retropulsed fracture fragment resulting in moderate central stenosis. Paravertebral edema present. Old healed left-sided rib fractures Abdomen and Pelvis: Liver: Hepatomegaly, 24.7 cm. Multiple hypodense irregular nodules in the liver are suspicious for metastatic disease. Largest nodule is in the right hepatic lobe measuring 2.5 cm. Biliary system: Cholecystectomy. No intra or extrahepatic bile duct dilation. Pancreas: Unremarkable without mass or inflammation evident. Spleen: Normal in size and density. Adrenals: Normal morphology and density. Reproductive system: Unremarkable as visualized. Urinary system: Normal renal size and attenuation. Right renal cyst measures 6 cm No renal calculi, hydronephrosis, or solid mass present. Mullins catheter in the bladder Gastrointestinal system: Irregular circumferential rectal wall thickening with perirectal edema and adenopathy most likely reflects rectal adenocarcinoma. Appendix: No findings to suggest acute appendicitis. Lymph nodes: Bulky retroperitoneal and mesenteric adenopathy noted. Largest node is in mid mesentery measuring 4.3 cm. Peritoneal spaces: No free air. No free fluid. Vasculature: The IVC, aorta and iliac vasculature are unremarkable. Abdominal wall: Abdominal wall intact without evidence of ventral or inguinal hernias. Musculoskeletal: Normal bone mineralization. Degenerative disc disease and arthropathy noted in lower lumbar spine. L1 compression fracture with perivertebral edema as well as retropulsed fracture fragment resulting in moderate central stenosis. Suggestion of lytic lesion present as well. Smaller lytic lesions noted at L3. IMPRESSION: 1. Metastatic rectal adenocarcinoma. There is irregular circumferential rectal wall thickening associated with perirectal, retroperitoneal and mesenteric bulky adenopathy. Hypodense hepatic metastasis as well as multifocal osteolytic lesions present. 2. Acute appearing T11 and L1 compression fractures are likely pathologic compression fractures. Retropulsed fracture fragment at L1 results in moderate central stenosis. 3. Cardiomegaly, vascular congestion and right pleural effusion Approved by: Joaquin Patel M.D. on 08/03/2023 at 16:45 Chest x-ray: Radiologist Impression: PROCEDURE: XR CHEST 1V INDICATIONS: central line placement TECHNIQUE: One view of the chest was acquired. COMPARISON: [facility], , XR CHEST 2V, 08/14/2020, 10:35. FINDINGS: Surgical changes and devices: Right internal jugular central venous catheter tip is in SVC. Lungs and pleura: Hazy ground-glass opacities are noted throughout bilateral lung [place] suggestive of pulmonary edema. Superimposed bilateral patchy infiltrates particularly in right lower lobe is suspected. Small left pleural effusion is seen. No pneumothorax. Mediastinum: Mediastinal contours appear normal. Heart size is enlarged. Bones and chest wall: No suspicious bony lesions. Overlying soft tissues appear unremarkable. IMPRESSION: Right internal jugular central venous catheter tip is in SVC. Suggestion of worsening pulmonary edema, cannot rule out underlying bilateral patchy infiltrates. No pneumothorax. Dictated by: Roland Lopez M.D. on 08/03/2023 at 18:07 ECG Data Interpretation: Sinus tachycardia rate 137 DC interval 160 QRS and a 4 QTC 420 MDM Narrative Medical decision making narrative: Patient 73-year-old female presents today with generalized weakness. She is found initially to be mottled in her lower extremities shaking with rigors. She is hypertensive but I think this is a false reading she is clenching down. Concern for sepsis. Sepsis fluids were immediately started. Labs have been reviewed she has a leukocytosis of 14, sodium slightly low 131 chloride 89 BUN 26 creatinine 0.5 initial lactate is 5.0 with repeat of 3.9, BNP 21 20 with out signs of congestive heart failure Imaging: Chest abdomen pelvis shows metastatic colorectal cancer to liver with pathologic fractures to T11 and L1 Patient's blood pressure did ultimately decrease, central line was empirically placed. She is very dry on exam. She does seem to be mentating okay able to follow commands and responsive. I think unlikely to be meningitis or encephalitis. Not complaining of headache her neck is not stiff. She is given Zosyn and vancomycin. She is currently full code. 1 son is at bedside and I did speak to another son on the phone Dr. Amezcua accepts patient and at bedside in ED Critical Care Time Critical Care Time Critical Care Time: Yes Total Critical Care Time: 45 Attestation: The high probability of a clinically significant, sudden or life threatening deterioration of the [cardiovascular] system(s) required my full and direct attention, intervention and personal management. The aggregate critical care time was [45] minutes. This time is in addition to time spent performing reported procedures but includes the following: [x] Data Review and interpretation [x] Patient assessment and monitoring of vital signs [x] Documentation [x] Medication orders and management Discharge Plan Departure Patient Disposition: Admitted As Inpatient Clinical Impression: Sepsis Admit Date/Time: 08/03/23 17:52 Admit Provider: Dimas Amezcua
[2023-08-03 16:11] LABS: INR 1.5 (0.9-1.3); Prothrombin Time 17.1 SECONDS (10.1-12.7)
[2023-08-03 16:12] LABS: Appearance Urine UA CLEAR; Bilirubin Urine UA 1+ (NEGATIVE); Color Urine UA YELLOW; Glucose Urine UA TRACE g/dL (Negative); Ketones Urine UA 1+ (NEGATIVE); Leukocyte Esterase Urine UA NEGATIVE (NEGATIVE); Nitrite Urine UA NEGATIVE (Negative); Occult Blood Urine UA TRACE-INTACT (Negative); Protein Urine UA 1+ (Negative)
[2023-08-03 16:13] LABS: Add Manual Diff / Slide Review NO; Basophils Absolute Auto 0 /uL (0-100); Basophils Percent Auto 0.1 % (0-2); Eosinophils Absolute Auto 100 /uL (0-450); Eosinophils Percent Auto 0.5 % (2-4); Hematocrit 46.8 % (36-46); Hemoglobin 15.2 g/dL (12.0-16.0); Lymphocytes Absolute Auto 600 /uL (1100-4500); Lymphocytes Percent Auto 3.9 % (25-40); Mean Corpuscular HGB Conc 32.4 % (30-36); Mean Corpuscular Volume 80.4 fL (80-100); Monocytes Absolute Auto 300 /uL (0-900); Neutrophils Absolute Auto 13600 /uL (1500-7000); Neutrophils Percent Auto 93.5 % (50-75); Platelet Count 118 X10^3/uL (150-400); Red Blood Cell Count 5.83 X10^6/uL (4.0-5.2); Red Cell Distribution Width 15.4 % (11.6-14.8); White Blood Cell Count 14.5 X10^3/uL (4.5-11.0)
[2023-08-03 16:14] LABS: PTT Partial Thromboplastin Tim 33 SECONDS (26-36)
--- NOTE | 2023-08-03 16:14 | DI.CT.S_ITS ---
PROCEDURE: CT CHEST ABD PEL W CON INDICATIONS: weakness. Right flank pain. Dysuria. Chest pain. TECHNIQUE: After the administration of intravenous contrast, 5 mm thick sections acquired from the lung apices to the symphysis. 5 mm coronal and sagittal reformats were performed, with additional 7 mm MIP reformats through the lungs. For radiation dose reduction, the following was used: automated exposure control, adjustment of mA and/or kV according to patient size. COMPARISON: [facility], CT, CT CHEST WO CON, 09/20/2020, 10:09. FINDINGS: Chest: Cardiovascular: Heart size is enlarged. Aortic vascular calcification without aneurysm. Lungs and pleural spaces: Moderate right pleural effusion. Left lung clear. Septal thickening both lung apices reflect vascular congestion. Lymph nodes: No mediastinal, hilar or axillary adenopathy. Mediastinum: Unremarkable. No hiatal hernia. Thyroid within normal limits. Chest Wall and Bones: In wedge-shaped compression fractures at T11 and L1 noted with L1 retropulsed fracture fragment resulting in moderate central stenosis. Paravertebral edema present. Old healed left-sided rib fractures Abdomen and Pelvis: Liver: Hepatomegaly, 24.7 cm. Multiple hypodense irregular nodules in the liver are suspicious for metastatic disease. Largest nodule is in the right hepatic lobe measuring 2.5 cm. Biliary system: Cholecystectomy. No intra or extrahepatic bile duct dilation. Pancreas: Unremarkable without mass or inflammation evident. Spleen: Normal in size and density. Adrenals: Normal morphology and density. Reproductive system: Unremarkable as visualized. Urinary system: Normal renal size and attenuation. Right renal cyst measures 6 cm No renal calculi, hydronephrosis, or solid mass present. Mullins catheter in the bladder Gastrointestinal system: Irregular circumferential rectal wall thickening with perirectal edema and adenopathy most likely reflects rectal adenocarcinoma. Appendix: No findings to suggest acute appendicitis. Lymph nodes: Bulky retroperitoneal and mesenteric adenopathy noted. Largest node is in mid mesentery measuring 4.3 cm. Peritoneal spaces: No free air. No free fluid. Vasculature: The IVC, aorta and iliac vasculature are unremarkable. Abdominal wall: Abdominal wall intact without evidence of ventral or inguinal hernias. Musculoskeletal: Normal bone mineralization. Degenerative disc disease and arthropathy noted in lower lumbar spine. L1 compression fracture with perivertebral edema as well as retropulsed fracture fragment resulting in moderate central stenosis. Suggestion of lytic lesion present as well. Smaller lytic lesions noted at L3. IMPRESSION: 1. Metastatic rectal adenocarcinoma. There is irregular circumferential rectal wall thickening associated with perirectal, retroperitoneal and mesenteric bulky adenopathy. Hypodense hepatic metastasis as well as multifocal osteolytic lesions present. 2. Acute appearing T11 and L1 compression fractures are likely pathologic compression fractures. Retropulsed fracture fragment at L1 results in moderate central stenosis. 3. Cardiomegaly, vascular congestion and right pleural effusion Approved by: Joaquin Patel M.D. on 08/03/2023 at 16:45
[2023-08-03 16:15] LABS: pH Urine UA 5.5 (4.5-8.0)
[2023-08-03 16:17] LABS: Alanine Aminotransferase 83 IU/L (<35); Albumin 3.4 g/dL (3.5-5.0); Albumin Globulin Ratio 0.8 (1.0-2.8); Alkaline Phosphatase 229 U/L (38-126); Aspartate Aminotransferase 43 IU/L (14-36); BUN Creatinine Ratio 48.1 (6-22); Bilirubin Total 0.9 mg/dL (0.2-1.3); Blood Urea Nitrogen 26 mg/dL (7-17); Carbon Dioxide 27 mmol/L (22-32); Chloride 89 mmol/L (98-107); Creatine Kinase 43 U/L (30-135); Estimated Glomerular Filt Rate > 60 mL/min (>60); Globulin 4.3 g/dL (1.7-4.1); Glucose 196 mg/dL (80-110); HEMOLYSIS < 15 (0-50); Lipase 63 U/L (23-300); Potassium 3.5 mmol/L (3.4-5.1); Sodium 131 mmol/L (137-145); Total Protein 7.7 g/dL (6.3-8.2)
[2023-08-03 16:25] LABS: Bacteria Urine None Seen; Culture Indicated Urine Cult Not Indicated; Ictotest Urine Negative (Negative); RBC Urine None Seen (0-5/HPF); Squamous Epithelial Cell Urine 1-5 /HPF (0-5/HPF); WBC Urine 1-5/HPF (0-5/HPF)
[2023-08-03 16:28] LABS: COVID19 -Nasal RAPID Negative (Negative)
[2023-08-03 16:29] LABS: NT-proBNP (BNP-Adult 18+) 2120 pg/mL (<125); Troponin I < 0.012 ng/mL (0.01-0.034)
[2023-08-03] MEDS: PIPERACILLIN/TAZO 4.5 GM in SODIUM CHLORIDE 0.9% 100 ML IV (16:55)
[2023-08-03] MEDS: ACETAMINOPHEN IV 1,000 MG/100 ML VIAL 400 MG IV (16:59)
[2023-08-03] MEDS: SODIUM CHLORIDE 0.9% 1,779 ML 593 ML IV (17:02)
[2023-08-03] MEDS: VANCOMYCIN 1,250 MG/250 ML PIGGYBACK 250 MG IV (17:32)
[2023-08-03 17:42] LABS: Reflexed Lactate in 2 Hours Y
--- NOTE | 2023-08-03 17:45 | DI.RAD.S_ITS ---
PROCEDURE: XR CHEST 1V INDICATIONS: central line placement TECHNIQUE: One view of the chest was acquired. COMPARISON: [facility], CR, XR CHEST 2V, 08/14/2020, 10:35. FINDINGS: Surgical changes and devices: Right internal jugular central venous catheter tip is in SVC. Lungs and pleura: Hazy ground-glass opacities are noted throughout bilateral lung burton suggestive of pulmonary edema. Superimposed bilateral patchy infiltrates particularly in right lower lobe is suspected. Small left pleural effusion is seen. No pneumothorax. Mediastinum: Mediastinal contours appear normal. Heart size is enlarged. Bones and chest wall: No suspicious bony lesions. Overlying soft tissues appear unremarkable. IMPRESSION: Right internal jugular central venous catheter tip is in SVC. Suggestion of worsening pulmonary edema, cannot rule out underlying bilateral patchy infiltrates. No pneumothorax. Dictated by: Roland Lopez M.D. on 08/03/2023 at 18:07 Approved by: Roland Lopez M.D. on 08/03/2023 at 18:08
[2023-08-03 18:05] LABS: Adenovirus Not Detected (Not Detect); B. parapertussis Not Detected (Not Detecte); Bordetella pertussis Not Detected (Not Detect); Chlamydophila pneumoniae Not Detected (Not Detect); Coronavirus 229E Not Detected (Not Detect); Coronavirus HKU1 Not Detected (Not Detect); Coronavirus NL 63 Not Detected (Not Detect); Coronavirus OC43 Not Detected (Not Detect); Human Metapneumovirus Not Detected (Not Detect); Human Rhinovirus/Enterovirus Not Detected (Not Detect); Influenza A Not Detected (Not Detect); Influenza B Not Detected (Not Detect); Mycoplasma pneumoniae Not Detected (Not Detect); Parainfluenza Virus 1 Not Detected (Not Detect); Parainfluenza Virus 2 Not Detected (Not Detect); Parainfluenza Virus 3 Not Detected (Not Detect); Parainfluenza Virus 4 Not Detected (Not Detect); Respiratory Syncytial Virus Not Detected (Not Detect); SARS- CoV-2 Not Detected (Not Detecte)
[2023-08-03] MEDS: NOREPINEPHRINE BITARTRATE/D5W 4 MG/250 ML PLAST..BAG 32.963 MG IV (18:19)
[2023-08-03 18:22] LABS: Lactate 2HR (Lactic Acid Rflx) 3.9 mmol/L (0.7-2.1)
--- NOTE | 2023-08-03 18:25 | P.HP_ITS ---
History of Present Illness History of Present Illness Date Patient Seen: 08/03/23 Time Patient Seen: 18:25 Chief complaint: Weakness T-3 Narrative: This is a 73-year-old female who presents with extremis and whole-body mottling. She was brought by ambulance from her home for weakness and being bed-bound for least several days. Her son arrives from a neighboring town shortly after her stabilization and central line were placed in the emergency department. He is able to check on her about once every week. They describe a course of several months of downward decline. The patient has had progressive weakness, and anorexia. She has frequent episodes of diarrhea which alternate with constipation. She denies any rectal bleeding or rectal pain. She has never had a colonoscopy. In the emergency department she was tachycardic and mottled. She was initially hypertensive. She was fluid resuscitated with a standard sepsis bolus of crystalloid. A central venous catheter was placed in the right internal jugular. The patient had a clear chest x-ray. Her initial lactic was quite elevated. She was given broad-spectrum antibiotics after blood cultures, including Zosyn and vancomycin. She was not febrile. The patient denies recent upper respiratory symptoms, cough or dyspnea. No chest pain. Her ECG revealed a sinus tachycardia. Her abdomen was distended and a CT scan was obtained of the chest and abdomen. Unfortunately, this revealed evidence of a undiagnosed rectal cancer which has metastasized to the retroperitoneum, peritoneum, liver, and spine. The patient improved with her fluid bolus and she is mentally alert and not confused. She does note she feels extremely dehydrated. Her tongue is very dry in appearance. She does live alone just 2 blocks from the hospital. She denies recent abdominal pain. She was informed that unfortunately the CT scan does reveal evidence of a widespread rectal cancer. [facility] Medical History Obstructive sleep apnea (Unknown) Hearing loss (Unknown) Sarcoidosis (Unknown) Mediastinal lymphadenopathy (Unknown) Degenerative disc disease (Unknown) Diabetes (Unknown) Hypertension (Unknown) Peripheral neuropathy (Unknown) Surgical History Hx of tympanostomy tubes History of cholecystectomy (1979) History of tonsillectomy (~1950) H/O tubal ligation (1977) Family History Father Cancer Mother Cancer Social History Smoking Status: Never smoker Meds Home Medications and Allergies Home Medications Medication Instructions Recorded Confirmed Type duloxetine 60 mg capsule,delayed 60 mg PO QDAY #30 caps 01/16/18 08/09/18 Rx release duloxetine 30 mg capsule,delayed 30 mg PO QDAY #90 caps 01/24/18 08/09/18 Rx release losartan 100 mg tablet 100 mg PO QDAY #90 tabs 02/22/18 08/09/18 Rx chlorthalidone 25 mg tablet 25 - 50 mg (1 - 2 x 25 mg) PO QDAY 06/05/18 08/09/18 Rx #60 tabs metformin 500 mg tablet 500 mg PO TID #270 tabs 07/22/18 08/09/18 Rx (Glucophage) Glucose: Home Monitoring Kit 1 kit miscellaneous DIRECTED 08/09/18 08/09/18 History Glucose: Test Strips 1 str miscellaneous BID 08/09/18 08/09/18 History cyclobenzaprine 10 mg tablet 10 mg PO Q8H PRN muscle spasm #10 08/09/18 Rx tabs alendronate 70 mg tablet 70 mg PO QWEEK #12 tabs 03/06/19 Rx peg 3350-electrolytes 236 240 ml PO Q10M #4,000 mL 07/02/23 Rx gram-22.74 gram-6.74 gram-5.86 gram solution (Golytely) Allergies Allergy/AdvReac Type Severity Reaction Status Date / Time cetirizine [CETIRIZINE] AdvReac Severe SLEEPINESS Verified 08/03/23 16:57 THAT LASTED FOR ABOUT 2 1/2 DAYS Review of Systems Review of Systems Narrative: All else reviewed and otherwise unremarkable. This includes denial of any urinary symptoms other than decreased urination. Exam Vital Signs (past 8 hours): - 08/03/23 15:46 08/03/23 15:50 08/03/23 15:55 Temperature 99.6 F Pulse Rate 192 H 152 H Respiratory Rate 25 H 26 H Blood Pressure 186/106 H 186/106 H Pulse Oximetry 90 L 97 Oxygen Delivery Method Room Air Room Air Oxygen Flow Rate 08/03/23 15:55 08/03/23 16:00 08/03/23 16:04 Temperature Pulse Rate 137 H 139 H Respiratory Rate 32 H 30 H Blood Pressure 196/97 H Pulse Oximetry 90 L 95 Oxygen Delivery Method Room Air Nasal Cannula Oxygen Flow Rate 2 08/03/23 16:04 08/03/23 16:05 08/03/23 16:10 Temperature Pulse Rate 143 H 141 H 145 H Respiratory Rate 31 H 28 H 42 H Blood Pressure Pulse Oximetry 94 95 92 Oxygen Delivery Method Oxygen Flow Rate 08/03/23 16:15 08/03/23 16:16 08/03/23 16:16 Temperature Pulse Rate 155 H 156 H Respiratory Rate 42 H 47 H Blood Pressure 202/124 H Pulse Oximetry 94 94 Oxygen Delivery Method Oxygen Flow Rate 08/03/23 16:20 08/03/23 16:20 08/03/23 16:23 Temperature Pulse Rate 155 H Respiratory Rate 33 H Blood Pressure 221/103 H 216/164 H Pulse Oximetry 91 Oxygen Delivery Method Oxygen Flow Rate 08/03/23 16:23 08/03/23 16:25 08/03/23 16:30 Temperature 99.1 F 99.7 F H 100.4 F H Pulse Rate 159 H 163 H 166 H Respiratory Rate 30 H 30 H 35 H Blood Pressure Pulse Oximetry 87 L 88 L 88 L Oxygen Delivery Method Nasal Cannula Oxygen Flow Rate 4 4 4 08/03/23 16:35 08/03/23 16:35 08/03/23 16:37 Temperature 101.1 F H 101.3 F H Pulse Rate 161 H 160 H Respiratory Rate 29 H 34 H Blood Pressure 168/110 H Pulse Oximetry Oxygen Delivery Method Oxygen Flow Rate 08/03/23 16:38 08/03/23 16:40 08/03/23 16:40 Temperature 101.8 F H Pulse Rate 156 H Respiratory Rate 29 H Blood Pressure 163/102 H 206/153 H Pulse Oximetry 87 L Oxygen Delivery Method Oxygen Flow Rate 08/03/23 16:41 08/03/23 16:41 08/03/23 16:45 Temperature 102.0 F H Pulse Rate 156 H Respiratory Rate 27 H Blood Pressure 213/152 H 173/79 H Pulse Oximetry 95 Oxygen Delivery Method Nasal Cannula Oxygen Flow Rate 4 08/03/23 16:45 08/03/23 16:50 08/03/23 16:53 Temperature 102.4 F H 102.6 F H 102.7 F H Pulse Rate 154 H 152 H 150 H Respiratory Rate 26 H 24 26 H Blood Pressure Pulse Oximetry 97 100 100 Oxygen Delivery Method Oxygen Flow Rate 4 08/03/23 16:53 08/03/23 16:55 08/03/23 16:55 Temperature 102.7 F H Pulse Rate 149 H Respiratory Rate 25 H Blood Pressure 173/76 H 143/64 H Pulse Oximetry 100 Oxygen Delivery Method Nasal Cannula Oxygen Flow Rate 4 08/03/23 17:00 08/03/23 17:00 08/03/23 17:05 Temperature 102.9 F H Pulse Rate 145 H Respiratory Rate 26 H Blood Pressure 125/58 L 107/54 L Pulse Oximetry 100 Oxygen Delivery Method Nasal Cannula Oxygen Flow Rate 4 08/03/23 17:05 08/03/23 17:10 08/03/23 17:10 Temperature 102.9 F H 102.9 F H Pulse Rate 140 H 141 H Respiratory Rate 26 H 28 H Blood Pressure 106/49 L Pulse Oximetry 100 100 Oxygen Delivery Method Oxygen Flow Rate 2 08/03/23 17:15 08/03/23 17:15 08/03/23 17:20 Temperature 102.9 F H Pulse Rate 141 H Respiratory Rate 27 H Blood Pressure 104/52 L 92/53 L Pulse Oximetry 100 Oxygen Delivery Method Oxygen Flow Rate 08/03/23 17:20 08/03/23 17:25 08/03/23 17:25 Temperature 102.9 F H 102.7 F H Pulse Rate 137 H 137 H Respiratory Rate 26 H 27 H Blood Pressure 96/54 L Pulse Oximetry 99 100 Oxygen Delivery Method Nasal Cannula Oxygen Flow Rate 2 2 08/03/23 17:30 08/03/23 17:30 08/03/23 17:35 Temperature 102.6 F H Pulse Rate 138 H Respiratory Rate 30 H Blood Pressure 97/54 L 98/52 L Pulse Oximetry Oxygen Delivery Method Oxygen Flow Rate 2 08/03/23 17:35 08/03/23 17:40 08/03/23 17:40 Temperature 102.4 F H 102.0 F H Pulse Rate 131 H 128 H Respiratory Rate 24 26 H Blood Pressure 101/47 L Pulse Oximetry Oxygen Delivery Method Oxygen Flow Rate 08/03/23 17:45 08/03/23 17:45 08/03/23 17:50 Temperature 101.8 F H 101.5 F H Pulse Rate 125 H 123 H Respiratory Rate 25 H 26 H Blood Pressure 91/46 L Pulse Oximetry 99 98 Oxygen Delivery Method Nasal Cannula Nasal Cannula Oxygen Flow Rate 2 2 08/03/23 17:50 08/03/23 17:55 08/03/23 17:55 Temperature 101.3 F H Pulse Rate 125 H Respiratory Rate 28 H Blood Pressure 94/50 L 95/51 L Pulse Oximetry 98 Oxygen Delivery Method Nasal Cannula Oxygen Flow Rate 2 08/03/23 18:00 08/03/23 18:00 08/03/23 18:05 Temperature 101.1 F H 100.9 F H Pulse Rate 129 H 133 H Respiratory Rate 22 27 H Blood Pressure 105/48 L Pulse Oximetry 100 99 Oxygen Delivery Method Nasal Cannula Nasal Cannula Oxygen Flow Rate 2 2 08/03/23 18:05 08/03/23 18:10 08/03/23 18:10 Temperature 100.9 F H Pulse Rate 135 H Respiratory Rate 28 H Blood Pressure 92/47 L 83/51 L Pulse Oximetry 100 Oxygen Delivery Method Oxygen Flow Rate Oxygen Delivery Method Nasal Cannula Oxygen Flow Rate 2 Narrative Exam Narrative: She appears extremely dehydrated, she is in no overt distress upon my arrival. She is anxious. Her speech is fluent and her thought content is normal. HEENT is normal for EOMI, anicteric sclerae. Her oropharynx is extremely dry. Neck is supple, no adenopathy. Lungs are clear, normal effort. Heart is tachycardic, no murmur. Abdomen is distended, she does have right upper quadrant tenderness with palpation. No guarding or rebound. Extremities are free of edema, skin is notable for a diffuse papular rash which appears to be fairly chronic. Joints are unremarkable, no adenopathy. She moves arms and legs, no facial droop. Objective ECG Impression: Sinus tachycardia Imaging CT scan - abdomen: Radiologist's impression: 1. Metastatic rectal adenocarcinoma. There is irregular circumferential rectal wall thickening associated with perirectal, retroperitoneal and mesenteric bulky adenopathy. Hypodense hepatic metastasis as well as multifocal osteolytic lesions present. 2. Acute appearing T11 and L1 compression fractures are likely pathologic compression fractures. Retropulsed fracture fragment at L1 results in moderate central stenosis. 3. Cardiomegaly, vascular congestion and right pleural effusion Chest x-ray: Radiologist's impression: IMPRESSION: Right internal jugular central venous catheter tip is in SVC. Suggestion of worsening pulmonary edema, cannot rule out underlying bilateral patchy infiltrates. No pneumothorax. Labs 08/03/23 16:00 08/03/23 16:00 Labs: Laboratory Results - last 24 hr 08/03/23 08/03/23 08/03/23 16:00 16:00 17:12 WBC 14.5 H RBC 5.83 H Hgb 15.2 Hct 46.8 H MCV 80.4 MCH 26.0 MCHC 32.4 RDW 15.4 H Plt Count 118 L Neut % (Auto) 93.5 H Lymph % (Auto) 3.9 L Labette % (Auto) 2.0 L Eos % (Auto) 0.5 L Baso % (Auto) 0.1 Neut # (Auto) 69742 H Lymph # (Auto) 600 L [place] # (Auto) 300 Eos # (Auto) 100 Baso # (Auto) 0 PT 17.1 H INR 1.5 H APTT 33 Sodium 131 L Potassium 3.5 Chloride 89 L Carbon Dioxide 27 BUN 26 H Creatinine 0.54 Estimated GFR > 60 BUN/Creatinine Ratio 48.1 H Glucose 196 H Lactate 5.0 H* Calcium 10.0 Total Bilirubin 0.9 AST 43 H ALT 83 H Alkaline Phosphatase 229 H Total Creatine Kinase 43 Troponin I < 0.012 NT-Pro-B Natriuret Pep 2120 H Cancelled Total Protein 7.7 Albumin 3.4 L Globulin 4.3 H Albumin/Globulin Ratio 0.8 L Lipase 63 Procalcitonin 1.80 H Urine Color Yellow Urine Appearance Clear Urine pH 5.5 Ur Specific Mckinney 1.020 Urine Protein 1+ H Urine Glucose (UA) Trace H Urine Ketones 1+ H Urine Occult Blood Trace-intact Urine Nitrate Negative Urine Bilirubin 1+ H Ur Bilirubin Confirm Negative Urine Urobilinogen 1.0 Ur Leukocyte Esterase Negative Urine RBC None seen Urine WBC 1-5/hpf Ur Squamous Epith Cells 1-5 /hpf Urine Bacteria None seen Ur Culture Indicated? Cult not indicated Chlamy pneumoniae PCR Not detected Adenovirus (PCR) Not detected B.parapertussis DNA PCR Not detected Coronavirus OC43 (PCR) Not detected Coronavirus HKU1 (PCR) Not detected Coronavirus 229E (PCR) Not detected SARS-CoV-2 (PCR) Negative Not detected Coronavirus NL63 (PCR) Not detected Human Metapneumovir PCR Not detected Influenza Type A (PCR) Not detected Influenza Type B (PCR) Not detected M. pneumoniae (PCR) Not detected Parainfluenza 1 (PCR) Not detected Parainfluenza 2 (PCR) Not detected Parainfluenza 3 (PCR) Not detected Parainfluenza 4 (PCR) Not detected RSV (PCR) Not detected Entero/Rhino (PCR) Not detected 08/03/23 18:04 WBC RBC Hgb Hct MCV MCH MCHC RDW Plt Count Neut % (Auto) Lymph % (Auto) Labette % (Auto) Eos % (Auto) Baso % (Auto) Neut # (Auto) Lymph # (Auto) Labette # (Auto) Eos # (Auto) Baso # (Auto) PT INR APTT Sodium Potassium Chloride Carbon Dioxide BUN Creatinine Estimated GFR BUN/Creatinine Ratio Glucose Lactate 3.9 H Calcium Total Bilirubin AST ALT Alkaline Phosphatase Total Creatine Kinase Troponin I NT-Pro-B Natriuret Pep Total Protein Albumin Globulin Albumin/Globulin Ratio Lipase Procalcitonin Urine Color Urine Appearance Urine pH Ur Specific Mckinney Urine Protein Urine Glucose (UA) Urine Ketones Urine Occult Blood Urine Nitrate Urine Bilirubin Ur Bilirubin Confirm Urine Urobilinogen Ur Leukocyte Esterase Urine RBC Urine WBC Ur Squamous Epith Cells Urine Bacteria Ur Culture Indicated? Chlamy pneumoniae PCR Adenovirus (PCR) B.parapertussis DNA PCR Coronavirus OC43 (PCR) Coronavirus HKU1 (PCR) Coronavirus 229E (PCR) SARS-CoV-2 (PCR) Coronavirus NL63 (PCR) Human Metapneumovir PCR Influenza Type A (PCR) Influenza Type B (PCR) M. pneumoniae (PCR) Parainfluenza 1 (PCR) Parainfluenza 2 (PCR) Parainfluenza 3 (PCR) Parainfluenza 4 (PCR) RSV (PCR) Entero/Rhino (PCR) Assessment & Plan Assessment & Plan narrative: 1. Severe septic shock with tachycardia, tachypnea, lactic acidosis, and abnormal liver function tests. Source is unclear. Present on admission and active. -we will continue fluid resuscitation, and broad-spectrum empiric antibiotics, and trend lactic acid as well as follow cultures. 2. Profound volume depletion, present on admission and active. 3. Sinus tachycardia likely related to volume depletion and sepsis, present on admission and active. 4. Apparent new diagnosis of metastatic rectal cancer, present on admission and active. 5. Chest x-ray and CT read as possible pulmonary edema with an elevated BNP, and a pleural effusion. Present on admission and active. 6. Lactic acidosis, present on admission and active. 7. Elevated liver function tests and evidence of metastases to the liver, present on admission and active. Plan: The patient is hypotensive after her initial sepsis bolus will be given more IV fluids. She is comfortable and breathing well on nasal cannula oxygen. Her cardiac function is unknown. We will fluid resuscitate and transitioned to norepinephrine if needed. She does have a right IJ CVL. The patient will likely need a cardiac echo tomorrow to assess her ventricular function given her despairing findings of volume depletion and possible pulmonary edema and pleural effusion. The patient is at risk for pulmonary embolism, this could result in her elevated BNP and pleural effusion. Of course, the possibility of metastases to the lungs and a malignant pleural effusion also exist. The patient will continue to be treated as severe sepsis with empiric antibiotics pending cultures. Consider CT pulmonary angiogram if she fails to improve as expected with initial clinical maneuvers. Level of care: She confirms full resuscitation and full level of care at this point. She just found out this news of new metastatic cancer and as yet been able to process this. Her son was with her, at the bedside in the ED when this knees with shared. Critical care time spent 60 minutes. This patient is extremely unstable hemodynamically and is at great risk of adverse outcomes of severe sepsis and volume depletion as well as possible respiratory failure. She will likely require vasopressor support tonight and is at high risk for requiring noninvasive positive pressure ventilation or even intubation. Time Spent With Patient Time with patient: 50 to 69 minutes with 50% spent counseling/coordinating care Quality MIPS - Admit I confirm the patient?s Advance Care Plan is present, Code status is documented, Surrogate decision maker is in patient?s record [If Yes, STOP here]: Yes
--- NOTE | 2023-08-03 18:33 | PC.NURSE ---
report called to Chelsea RN. Pt escorted to ICU w/2 RNs
--- NOTE | 2023-08-03 18:50 | PC.NURSE ---
1600: pt arrived to ED via EMS, alert, following commands, oriented x 4, reports living at home alone, unable to get up out of bed for several days, increasing weakness to extremities accompanied by increased pain/discomfort to R flank. Pt c/o burning with urination. EMS reported pt's son had to climb through the window to enter due to pt unable to get to door. pt arrives in brief soiled with foul smelling urine and loose BM. EMS reported floor of home was covered with soiled diapers. bilateral lower extremities mottled, poor cap refill. pt grimacing throughout initial assessment, primarily c/o R flank pain; reports been like that for awhile; vague answers, poor historian. Pt unable to tolerate lying flat. denies difficulty breathing/respiratory distress at baseline. oxygen saturation between 95-97% on RA. Difficulty intermittently obtaining saturation, multiple sat probes utilized. Pericare provided, placed in brief, in n out cath used for obtaining sterile urine sample, sent to lab. multiple wounds present to sacrum; appear consistent with pressure ulcers w/ open wound beds, approximately the size dimes. Dr. Parker aware. Rectal temp 100.0F, verbal read back from Dr. Parker to place temp sensing capellan; placed without issue; 16Fr temp sensing capellan. 1620: Pt oxygen saturation between 87-92% on RA, pt immediately placed on 2-4L NC, Dr. Parker aware. 1630: Pt to and from CT with RN on all monitoring equipment. pt on 4L NC throughout CT, HOB elevated, 96-99% during duration of scan. Upon return to room, pt's mentation decreased, less responsive to questions, febrile 103F per core temp capellan. Dr. Parker aware. Pt moved into room [address] for closer proximity to nurses station and RN at bedside throughout for continuous monitoring and intervention. Dr. Parker alerted of changes to pt's BP. Pressures trending down, per Dr. Parker, initiation of Levophed for MAP < 65. RN present for placement of central line. Pt tolerated well. Pt's mentation improving and temperature improving. Pt's son present at bedside s/p central line placement. Admitting MD at bedside with pt and pt's family to discuss findings and plan of care. 1815: Report called to Chelsea, RN in ICU. All questions/concerns answered. Prior to transfer to ICU, pt's BP dropped, MAP 58, per Dr. Parker Levoveeed initiated. Pt transferred to ICU w/ 2 RNs, on all monitoring equipment.
[2023-08-03] MEDS: SODIUM CHLORIDE 0.9% 1,000 ML 100 ML IV (19:00)
[2023-08-03] MEDS: ACETAMINOPHEN 325 MG TABLET 650 MG PO (19:49)
[2023-08-03] MEDS: ONDANSETRON 4 MG ODT SL (19:49)
[2023-08-03] MEDS: OXYCODONE IR 5 MG TABLET PO (19:49)
[2023-08-03 19:59] LABS: MRSA (Nasal) PCR Not Detected (Not Detect)
[2023-08-03] MEDS: FAMOTIDINE 20 MG/2 ML VIAL IV (20:06)
[2023-08-03] MEDS: PIPERACILLIN/TAZO 3.375 GM in SODIUM CHLORIDE 0.9% 100 ML IV (20:06)
[2023-08-03 20:39] LABS: Lactate (Lactic Acid) 3.6 mmol/L (0.7-2.1)
[2023-08-03 21:55] LABS: Reflexed Lactate in 2 Hours Y
[2023-08-03 23:28] LABS: Fractionated Inspired Oxygen 30; HCO3 ABG 21 mmol/L (23-27); Oxygen Saturation ABG 98 % (95-100); PO2 ABG 95 mmHg (80-100); TCO2 ABG 22 mmol/L (23-27)
[2023-08-04] VITALS (92 sets, daily range): BP systolic 92–151; BP diastolic 51–90; PULSE 75–122; RESP 0–47; TEMP 33.5–37.9; O2SAT 89–98
[2023-08-04 00:32] LABS: Lactate (Lactic Acid) 2.2 mmol/L (0.7-2.1)
[2023-08-04] MEDS: HYDROMORPHONE 0.5 MG INJ IV ×5 (01:30→23:42)
--- NOTE | 2023-08-04 01:39 | PC.WOUNDPHOT ---
pt coccyx wound 1.25cm wide X1 cm long unstaged pressure ulcer
[2023-08-04 01:56] LABS: Reflexed Lactate in 2 Hours Y
[2023-08-04 03:09] LABS: Lactate 2HR (Lactic Acid Rflx) 1.7 mmol/L (0.7-2.1)
[2023-08-04 03:10] LABS: Alanine Aminotransferase 15 IU/L (<35); Albumin 2.4 g/dL (3.5-5.0); Albumin Globulin Ratio 0.7 (1.0-2.8); Alkaline Phosphatase 156 U/L (38-126); Aspartate Aminotransferase 35 IU/L (14-36); BUN Creatinine Ratio 59.6 (6-22); Bilirubin Total 0.6 mg/dL (0.2-1.3); Blood Urea Nitrogen 31 mg/dL (7-17); Carbon Dioxide 24 mmol/L (22-32); Chloride 97 mmol/L (98-107); Estimated Glomerular Filt Rate > 60 mL/min (>60); Globulin 3.4 g/dL (1.7-4.1); Glucose 234 mg/dL (80-110); HEMOLYSIS 35 (0-50); Potassium 3.3 mmol/L (3.4-5.1); Sodium 129 mmol/L (137-145); Total Protein 5.8 g/dL (6.3-8.2)
[2023-08-04 03:11] LABS: Hematocrit 35.4 % (36-46); Hemoglobin 11.5 g/dL (12.0-16.0); Mean Corpuscular HGB Conc 32.6 % (30-36); Mean Corpuscular Hemoglobin 25.8 PG (26-34); Mean Corpuscular Volume 79.2 fL (80-100); Platelet Count 123 X10^3/uL (150-400); Red Blood Cell Count 4.47 X10^6/uL (4.0-5.2); Red Cell Distribution Width 15.1 % (11.6-14.8); White Blood Cell Count 23.1 X10^3/uL (4.5-11.0)
[2023-08-04 03:14] LABS: Add Manual Diff / Slide Review YES
[2023-08-04] MEDS: PIPERACILLIN/TAZO 3.375 GM in SODIUM CHLORIDE 0.9% 100 ML IV ×3 (04:35→20:30)
[2023-08-04] MEDS: NOREPINEPHRINE BITARTRATE/D5W 4 MG/250 ML PLAST..BAG 19.778 MG IV (04:36)
[2023-08-04] MEDS: SODIUM CHLORIDE 0.9% 1,000 ML 100 ML IV ×3 (04:36→23:45)
[2023-08-04] MEDS: VANCOMYCIN 1,250 MG/250 ML PIGGYBACK 125 MG IV ×2 (06:00→17:13)
[2023-08-04 06:09] LABS: Acinetobacter calcoa-baumannii Not Detected (Not Detect); Bacteroides fragilis Not Detected (Not Detect); Candida albicans Not Detected (Not Detect); Candida auris Not Detected (Not Detect); Candida glabrata Not Detected (Not Detect); Candida krusei Not Detected (Not Detect); Candida parapsilosis Not Detected (Not Detect); Candida tropicalis Not Detected (Not Detect); Cryptococcus neoformans/gatti Not Detected (Not Detect); Enterobacter cloacae complex Not Detected (Not Detect); Enterobacterales Not Detected (Not Detect); Enterococcus faecalis Not Detected (Not Detect); Enterococcus faecium Not Detected (Not Detect); Haemophilus influenzae Not Detected (Not Detect); Klebsiella aerogenes Not Detected (Not Detect); Listeria monocytogenes Not Detected (Not Detect); Neisseria meningitidis Not Detected (Not Detect); Proteus species Not Detected (Not Detect); Pseudomonas aeruginosa Not Detected (Not Detect); Salmonella species Not Detected (Not Detect); Serratia marcescens Not Detected (Not Detect); Staphylococcus epidermidis Not Detected (Not Detect); Staphylococcus lugdunensis Not Detected (Not Detect); Staphylococcus species Not Detected (Not Detect); Stenotrophomonas maltophilia Not Detected (Not Detect); Streptococcus agalactiae (Gr B Not Detected (Not Detect); Streptococcus pneumonia Not Detected (Not Detect); Streptococcus pyogenes (Gr A) Not Detected (Not Detect)
[2023-08-04 06:27] LABS: Streptococcus species Detected (Not Detect)
[2023-08-04 06:45] LABS: Neutrophils Absolute Manual 20790 /uL (3000-5900); Total Cells Counted 100; Toxic Granulation Present; Toxic Vacuolation Present
[2023-08-04 06:46] LABS: Platelet Estimate Decreased on smear; RBC Morphology Normal Morphology
--- NOTE | 2023-08-04 08:52 | PM.PN.1 ---
Subjective Subjective Date Patient Seen: 08/04/23 Interval history: She is seen today to follow-up her widespread rectal cancer with bone metastasis, hypotension, sepsis, diabetes mellitus, depression and leukocytosis with hypokalemia. The BNP was 2120. The potassium was 3.3 with a sodium level of 129. The white blood count hang from 14.5 up to 23.1. We will be resuming her diabetes medicine. There was some confusion as the patient reported she was on Lantus and lispro but was actually only on Trulicity when we questioned family and investigated further. She remains on low-dose of Levophed for blood pressure support. She explains that she lives in her own apartment alone. Multiple family members are present and wished to discuss her new diagnosis of rectal cancer. I talked with 2 of her sons on the phone and others who were visiting but when I went to see them they had already left. Exam Vital Signs (past 8 hours): - 08/04/23 01:00 08/04/23 01:00 08/04/23 01:16 Temperature 99.9 F H 99.7 F H Pulse Rate 111 H 110 H Respiratory Rate 32 H 25 H Blood Pressure 124/67 Pulse Oximetry 94 94 Oxygen Delivery Method Oxygen Flow Rate 08/04/23 01:30 08/04/23 01:30 08/04/23 01:30 Temperature 100.2 F H 99.5 F Pulse Rate 109 H Respiratory Rate 21 Blood Pressure 107/56 L Pulse Oximetry 95 Oxygen Delivery Method Oxygen Flow Rate 08/04/23 02:00 08/04/23 02:00 08/04/23 02:30 Temperature 99.3 F 99.1 F Pulse Rate 111 H 111 H Respiratory Rate 20 20 Blood Pressure 112/69 Pulse Oximetry 95 94 Oxygen Delivery Method Oxygen Flow Rate 08/04/23 02:30 08/04/23 03:00 08/04/23 03:00 Temperature 99.1 F Pulse Rate 109 H Respiratory Rate 19 Blood Pressure 102/62 105/61 Pulse Oximetry 95 Oxygen Delivery Method Oxygen Flow Rate 08/04/23 03:30 08/04/23 03:30 08/04/23 04:00 Temperature 99.0 F Pulse Rate 109 H Respiratory Rate 19 Blood Pressure 106/69 121/75 Pulse Oximetry 95 Oxygen Delivery Method Oxygen Flow Rate 08/04/23 04:00 08/04/23 04:30 08/04/23 04:30 Temperature 99.0 F 99.0 F 99.0 F Pulse Rate 110 H 110 H Respiratory Rate 23 21 Blood Pressure Pulse Oximetry 95 96 Oxygen Delivery Method Oxygen Flow Rate 08/04/23 04:30 08/04/23 04:37 08/04/23 05:00 Temperature Pulse Rate Respiratory Rate Blood Pressure 119/64 99/54 L Pulse Oximetry Oxygen Delivery Method Nasal Cannula Oxygen Flow Rate 08/04/23 05:00 08/04/23 05:11 08/04/23 05:30 Temperature 99.0 F 98.8 F 98.6 F Pulse Rate 108 H 108 H 106 H Respiratory Rate 15 27 H 24 Blood Pressure Pulse Oximetry 93 94 94 Oxygen Delivery Method Oxygen Flow Rate 08/04/23 05:30 08/04/23 06:00 08/04/23 06:00 Temperature 98.2 F 98.2 F Pulse Rate 104 H 104 H Respiratory Rate 21 21 Blood Pressure 92/51 L 97/55 L Pulse Oximetry 95 95 Oxygen Delivery Method Oxygen Flow Rate 2 08/04/23 06:00 08/04/23 06:30 08/04/23 06:30 Temperature 97.9 F Pulse Rate 102 H Respiratory Rate 20 Blood Pressure 97/55 L 107/64 Pulse Oximetry 96 Oxygen Delivery Method Oxygen Flow Rate 08/04/23 07:00 08/04/23 07:00 08/04/23 07:30 Temperature 97.7 F Pulse Rate 101 H Respiratory Rate 19 Blood Pressure 100/64 110/65 Pulse Oximetry 96 Oxygen Delivery Method Oxygen Flow Rate 08/04/23 07:30 08/04/23 08:04 Temperature 97.7 F Pulse Rate 101 H Respiratory Rate 20 Blood Pressure Pulse Oximetry 95 Oxygen Delivery Method Nasal Cannula Oxygen Flow Rate Oxygen Delivery Method Nasal Cannula Oxygen Flow Rate 2 Objective Labs 08/04/23 02:45 08/04/23 02:45 Labs: Laboratory Results - last 24 hr 08/03/23 08/03/23 08/03/23 16:00 16:00 16:41 WBC 14.5 H RBC 5.83 H Hgb 15.2 Hct 46.8 H MCV 80.4 MCH 26.0 MCHC 32.4 RDW 15.4 H Plt Count 118 L Neut % (Auto) 93.5 H Lymph % (Auto) 3.9 L [place] % (Auto) 2.0 L Eos % (Auto) 0.5 L Baso % (Auto) 0.1 Neut # (Auto) 42072 H Lymph # (Auto) 600 L [place] # (Auto) 300 Eos # (Auto) 100 Baso # (Auto) 0 Total Counted Seg Neutrophils % Band Neutrophils % Lymphocytes % (Manual) Monocytes % (Manual) Neutrophils # (Manual) Toxic Granulation Toxic Vacuolation Platelet Estimate RBC Morphology PT 17.1 H INR 1.5 H APTT 33 ABG pH ABG pCO2 ABG pO2 ABG HCO3 ABG Total CO2 ABG O2 Saturation ABG Base Excess FiO2 Sodium 131 L Potassium 3.5 Chloride 89 L Carbon Dioxide 27 BUN 26 H Creatinine 0.54 Estimated GFR > 60 BUN/Creatinine Ratio 48.1 H Glucose 196 H Lactate 5.0 H* Calcium 10.0 Total Bilirubin 0.9 AST 43 H ALT 83 H Alkaline Phosphatase 229 H Total Creatine Kinase 43 Troponin I < 0.012 NT-Pro-B Natriuret Pep 2120 H Cancelled Total Protein 7.7 Albumin 3.4 L Globulin 4.3 H Albumin/Globulin Ratio 0.8 L Lipase 63 Procalcitonin 1.80 H Urine Color Yellow Urine Appearance Clear Urine pH 5.5 Ur Specific [place] 1.020 Urine Protein 1+ H Urine Glucose (UA) Trace H Urine Ketones 1+ H Urine Occult Blood Trace-intact Urine Nitrate Negative Urine Bilirubin 1+ H Ur Bilirubin Confirm Negative Urine Urobilinogen 1.0 Ur Leukocyte Esterase Negative Urine RBC None seen Urine WBC 1-5/hpf Ur Squamous Epith Cells 1-5 /hpf Urine Bacteria None seen Ur Culture Indicated? Cult not indicated Nasal Screen MRSA (PCR) A.calcoaceticus-baumannii cmplx PCR Not detected Chlamy pneumoniae PCR Adenovirus (PCR) Bacteroides fragilis Not detected B.parapertussis DNA PCR Nina albicans (PCR) Not detected Nina auris (PCR) Not detected C. glabrata (PCR) Not detected C. krusei (PCR) Not detected C. parapsilosis (PCR) Not detected C. tropicalis (PCR) Not detected Coronavirus OC43 (PCR) Coronavirus HKU1 (PCR) Coronavirus 229E (PCR) SARS-CoV-2 (PCR) Negative Coronavirus NL63 (PCR) C. neoform/gattii (PCR) Not detected Enterobacterales (PCR) Not detected E. cloacae complex PCR Not detected Enterococc faecalis PCR Not detected Enterococc faecium PCR Not detected E. coli (PCR) Not detected H. influenzae (PCR) Not detected Human Metapneumovir PCR Influenza Type A (PCR) Influenza Type B (PCR) Klebsiella aerogenes (PCR) Not detected Klebsiella oxytoca PCR Not detected Klebsiella pneumoniae Not detected List. monocytogenes PCR Not detected M. pneumoniae (PCR) N. meningitidis (PCR) Not detected Parainfluenza 1 (PCR) Parainfluenza 2 (PCR) Parainfluenza 3 (PCR) Parainfluenza 4 (PCR) Proteus species (PCR) Not detected RSV (PCR) Entero/Rhino (PCR) Salmonella spp. (PCR) Not detected Serratia marcescens PCR Not detected Staphylococcus sp PCR Not detected Staph aureus (PCR) Not detected mecA/C & MREJ Resist Gene Not applicable mecA/C-Methicil Resis Gene Not applicable mcr-1 Colistin Res Gene PCR Not applicable Staph epidermidis (PCR) Not detected Staph lugdunensis PCR Not detected S. maltophilia (PCR) Not detected Streptococcus sp PCR Detected Group A Strep (PCR) Not detected Strep agalactiae (PCR) Not detected Strep pneumoniae (PCR) Not detected P. aeruginosa (PCR) Not detected [place]/B-Vanco Res Genes Not applicable blaIMP Car res Gene PCR Not applicable KPC-Carbap Res Gene PCR Not applicable blaNDM Car Res Gene PCR Not applicable OXA-48 Carbapenem Resis Gene (PCR) Not applicable blaVIM Car Res Gene PCR Not applicable CTX-M Gene Resistance (PCR) Not applicable 08/03/23 08/03/23 08/03/23 17:12 18:04 18:45 WBC RBC Hgb Hct MCV MCH MCHC RDW Plt Count Neut % (Auto) Lymph % (Auto) [place] % (Auto) Eos % (Auto) Baso % (Auto) Neut # (Auto) Lymph # (Auto) [place] # (Auto) Eos # (Auto) Baso # (Auto) Total Counted Seg Neutrophils % Band Neutrophils % Lymphocytes % (Manual) Monocytes % (Manual) Neutrophils # (Manual) Toxic Granulation Toxic Vacuolation Platelet Estimate RBC Morphology PT INR APTT ABG pH ABG pCO2 ABG pO2 ABG HCO3 ABG Total CO2 ABG O2 Saturation ABG Base Excess FiO2 Sodium Potassium Chloride Carbon Dioxide BUN Creatinine Estimated GFR BUN/Creatinine Ratio Glucose Lactate 3.9 H Calcium Total Bilirubin AST ALT Alkaline Phosphatase Total Creatine Kinase Troponin I NT-Pro-B Natriuret Pep Total Protein Albumin Globulin Albumin/Globulin Ratio Lipase Procalcitonin Urine Color Urine Appearance Urine pH Ur Specific [place] Urine Protein Urine Glucose (UA) Urine Ketones Urine Occult Blood Urine Nitrate Urine Bilirubin Ur Bilirubin Confirm Urine Urobilinogen Ur Leukocyte Esterase Urine RBC Urine WBC Ur Squamous Epith Cells Urine Bacteria Ur Culture Indicated? Nasal Screen MRSA (PCR) Not detected A.calcoaceticus-baumannii cmplx PCR Chlamy pneumoniae PCR Not detected Adenovirus (PCR) Not detected Bacteroides fragilis B.parapertussis DNA PCR Not detected Nina albicans (PCR) Nina auris (PCR) C. glabrata (PCR) C. krusei (PCR) C. parapsilosis (PCR) C. tropicalis (PCR) Coronavirus OC43 (PCR) Not detected Coronavirus HKU1 (PCR) Not detected Coronavirus 229E (PCR) Not detected SARS-CoV-2 (PCR) Not detected Coronavirus NL63 (PCR) Not detected C. neoform/gattii (PCR) Enterobacterales (PCR) E. cloacae complex PCR Enterococc faecalis PCR Enterococc faecium PCR E. coli (PCR) H. influenzae (PCR) Human Metapneumovir PCR Not detected Influenza Type A (PCR) Not detected Influenza Type B (PCR) Not detected Klebsiella aerogenes (PCR) Klebsiella oxytoca PCR Klebsiella pneumoniae List. monocytogenes PCR M. pneumoniae (PCR) Not detected N. meningitidis (PCR) Parainfluenza 1 (PCR) Not detected Parainfluenza 2 (PCR) Not detected Parainfluenza 3 (PCR) Not detected Parainfluenza 4 (PCR) Not detected Proteus species (PCR) RSV (PCR) Not detected Entero/Rhino (PCR) Not detected Salmonella spp. (PCR) Serratia marcescens PCR Staphylococcus sp PCR Staph aureus (PCR) mecA/C & MREJ Resist Gene mecA/C-Methicil Resis Gene mcr-1 Colist[place] Res Gene PCR Staph epidermidis (PCR) Staph lugdunensis PCR S. maltophilia (PCR) Streptococcus sp PCR Group A Strep (PCR) Strep agalactiae (PCR) Strep pneumoniae (PCR) P. aeruginosa (PCR) [place]/B-Vanco Res Genes blaIMP Car res Gene PCR KPC-Carbap Res Gene PCR blaNDM Car Res Gene PCR OXA-48 Carbapenem Resis Gene (PCR) blaVIM Car Res Gene PCR CTX-M Gene Resistance (PCR) 08/03/23 08/03/23 08/03/23 20:07 22:01 22:52 WBC RBC Hgb Hct MCV MCH MCHC RDW Plt Count Neut % (Auto) Lymph % (Auto) [place] % (Auto) Eos % (Auto) Baso % (Auto) Neut # (Auto) Lymph # (Auto) [place] # (Auto) Eos # (Auto) Baso # (Auto) Total Counted Seg Neutrophils % Band Neutrophils % Lymphocytes % (Manual) Monocytes % (Manual) Neutrophils # (Manual) Toxic Granulation Toxic Vacuolation Platelet Estimate RBC Morphology PT INR APTT ABG pH 7.41 ABG pCO2 32.0 L ABG pO2 95 ABG HCO3 21 L ABG Total CO2 22 L ABG O2 Saturation 98 ABG Base Excess -4.0 L FiO2 30 Sodium Potassium Chloride Carbon Dioxide BUN Creatinine Estimated GFR BUN/Creatinine Ratio Glucose Lactate 3.6 H 3.0 H Calcium Total Bilirubin AST ALT Alkaline Phosphatase Total Creatine Kinase Troponin I NT-Pro-B Natriuret Pep Total Protein Albumin Globulin Albumin/Globulin Ratio Lipase Procalcitonin Urine Color Urine Appearance Urine pH Ur Specific [place] Urine Protein Urine Glucose (UA) Urine Ketones Urine Occult Blood Urine Nitrate Urine Bilirubin Ur Bilirubin Confirm Urine Urobilinogen Ur Leukocyte Esterase Urine RBC Urine WBC Ur Squamous Epith Cells Urine Bacteria Ur Culture Indicated? Nasal Screen MRSA (PCR) A.calcoaceticus-baumannii cmplx PCR Chlamy pneumoniae PCR Adenovirus (PCR) Bacteroides fragilis B.parapertussis DNA PCR Nina albicans (PCR) Nina auris (PCR) C. glabrata (PCR) C. krusei (PCR) C. parapsilosis (PCR) C. tropicalis (PCR) Coronavirus OC43 (PCR) Coronavirus HKU1 (PCR) Coronavirus 229E (PCR) SARS-CoV-2 (PCR) Coronavirus NL63 (PCR) C. neoform/gattii (PCR) Enterobacterales (PCR) E. cloacae complex PCR Enterococc faecalis PCR Enterococc faecium PCR E. coli (PCR) H. influenzae (PCR) Human Metapneumovir PCR Influenza Type A (PCR) Influenza Type B (PCR) Klebsiella aerogenes (PCR) Klebsiella oxytoca PCR Klebsiella pneumoniae List. monocytogenes PCR M. pneumoniae (PCR) N. meningitidis (PCR) Parainfluenza 1 (PCR) Parainfluenza 2 (PCR) Parainfluenza 3 (PCR) Parainfluenza 4 (PCR) Proteus species (PCR) RSV (PCR) Entero/Rhino (PCR) Salmonella spp. (PCR) Serratia marcescens PCR Staphylococcus sp PCR Staph aureus (PCR) mecA/C & MREJ Resist Gene mecA/C-Methicil Resis Gene mcr-1 [place] Res Gene PCR Staph epidermidis (PCR) Staph lugdunensis PCR S. maltophilia (PCR) Streptococcus sp PCR Group A Strep (PCR) Strep agalactiae (PCR) Strep pneumoniae (PCR) P. aeruginosa (PCR) [place]/B-Vanco Res Genes blaIMP Car res Gene PCR KPC-Carbap Res Gene PCR blaNDM Car Res Gene PCR OXA-48 Carbapenem Resis Gene (PCR) blaVIM Car Res Gene PCR CTX-M Gene Resistance (PCR) 08/04/23 08/04/23 00:12 02:45 WBC 23.1 H D RBC 4.47 Hgb 11.5 L Hct 35.4 L MCV 79.2 L MCH 25.8 L MCHC 32.6 RDW 15.1 H Plt Count 123 L Neut % (Auto) Not Reportable Lymph % (Auto) Not Reportable [place] % (Auto) Not Reportable Eos % (Auto) Not Reportable Baso % (Auto) Not Reportable Neut # (Auto) Lymph # (Auto) Not Reportable [place] # (Auto) Not Reportable Eos # (Auto) Baso # (Auto) Not Reportable Total Counted 100 Seg Neutrophils % 84.0 H Band Neutrophils % 6.0 Lymphocytes % (Manual) 8.0 L Monocytes % (Manual) 2.0 Neutrophils # (Manual) 71725 H Toxic Granulation Present H Toxic Vacuolation Present H Platelet Estimate Decreased on smear RBC Morphology Normal morphology PT INR APTT ABG pH ABG pCO2 ABG pO2 ABG HCO3 ABG Total CO2 ABG O2 Saturation ABG Base Excess FiO2 Sodium 129 L Potassium 3.3 L Chloride 97 L Carbon Dioxide 24 BUN 31 H Creatinine 0.52 Estimated GFR > 60 BUN/Creatinine Ratio 59.6 H Glucose 234 H Lactate 2.2 H 1.7 Calcium 8.0 L Total Bilirubin 0.6 AST 35 ALT 15 Alkaline Phosphatase 156 H Total Creatine Kinase Troponin I NT-Pro-B Natriuret Pep Total Protein 5.8 L Albumin 2.4 L Globulin 3.4 Albumin/Globulin Ratio 0.7 L Lipase Procalcitonin Urine Color Urine Appearance Urine pH Ur Specific [place] Urine Protein Urine Glucose (UA) Urine Ketones Urine Occult Blood Urine Nitrate Urine Bilirubin Ur Bilirubin Confirm Urine Urobilinogen Ur Leukocyte Esterase Urine RBC Urine WBC Ur Squamous Epith Cells Urine Bacteria Ur Culture Indicated? Nasal Screen MRSA (PCR) A.calcoaceticus-baumannii cmplx PCR Chlamy pneumoniae PCR Adenovirus (PCR) Bacteroides fragilis B.parapertussis DNA PCR Nina albicans (PCR) Nina auris (PCR) C. glabrata (PCR) C. krusei (PCR) C. parapsilosis (PCR) C. tropicalis (PCR) Coronavirus OC43 (PCR) Coronavirus HKU1 (PCR) Coronavirus 229E (PCR) SARS-CoV-2 (PCR) Coronavirus NL63 (PCR) C. neoform/gattii (PCR) Enterobacterales (PCR) E. cloacae complex PCR Enterococc faecalis PCR Enterococc faecium PCR E. coli (PCR) H. influenzae (PCR) Human Metapneumovir PCR Influenza Type A (PCR) Influenza Type B (PCR) Klebsiella aerogenes (PCR) Klebsiella oxytoca PCR Klebsiella pneumoniae List. monocytogenes PCR M. pneumoniae (PCR) N. meningitidis (PCR) Parainfluenza 1 (PCR) Parainfluenza 2 (PCR) Parainfluenza 3 (PCR) Parainfluenza 4 (PCR) Proteus species (PCR) RSV (PCR) Entero/Rhino (PCR) Salmonella spp. (PCR) Serratia marcescens PCR Staphylococcus sp PCR Staph aureus (PCR) mecA/C & MREJ Resist Gene mecA/C-Methicil Resis Gene mcr-1 [place] Res Gene PCR Staph epidermidis (PCR) Staph lugdunensis PCR S. maltophilia (PCR) Streptococcus sp PCR Group A Strep (PCR) Strep agalactiae (PCR) Strep pneumoniae (PCR) P. aeruginosa (PCR) [place]/B-Vanco Res Genes blaIMP Car res Gene PCR KPC-Carbap Res Gene PCR blaNDM Car Res Gene PCR OXA-48 Carbapenem Resis Gene (PCR) blaVIM Car Res Gene PCR CTX-M Gene Resistance (PCR) [facility] Medical History Obstructive sleep apnea (Unknown) Hearing loss (Unknown) Sarcoidosis (Unknown) Mediastinal lymphadenopathy (Unknown) Degenerative disc disease (Unknown) Diabetes (Unknown) Hypertension (Unknown) Peripheral neuropathy (Unknown) Surgical History Hx of tympanostomy tubes History of cholecystectomy (1979) History of tonsillectomy (~1950) H/O tubal ligation (1977) Family History Father Cancer Mother Cancer Social History household members: none Smoking Status: Never smoker Assessment & Plan Assessment & Plan narrative: 1. Severe septic shock with tachycardia, tachypnea, lactic acidosis, and abnormal liver function tests. Source is unclear. Present on admission and active. -we will continue fluid resuscitation, and broad-spectrum empiric antibiotics, and trend lactic acid as well as follow cultures. 2. Profound volume depletion, present on admission and active. 3. Sinus tachycardia likely related to volume depletion and sepsis, present on admission and active. 4. Apparent new diagnosis of metastatic rectal cancer, present on admission and active. 5. Chest x-ray and CT read as possible pulmonary edema with an elevated BNP, and a pleural effusion. Present on admission and active. 6. Lactic acidosis, present on admission and active. 7. Elevated liver function tests and evidence of metastases to the liver, present on admission and active. 8. Hypokalemia Plan: The patient's Blood pressure is improving and the Levophed is being weaned. She is comfortable and breathing well on nasal cannula oxygen. Her cardiac function is unknown. She does have a right IJ CVL. The patient will have cardiac echo tomorrow to assess her ventricular function given her disparate findings of volume depletion and possible pulmonary edema and pleural effusion. The patient is at risk for pulmonary embolism, this could result in her elevated BNP and pleural effusion. Of course, the possibility of metastases to the lungs and a malignant pleural effusion also exist. The patient will continue to be treated as severe sepsis with empiric antibiotics pending cultures. Consider CT pulmonary angiogram if she fails to improve Level of care: She confirms full resuscitation and full level of care at this point. She just found out this news of new metastatic cancer and as yet has not been able to process this. Her sons are brief on the phone today. Quality VTE Deep Vein Thrombosis/Pulmonary Embolism Present on Admission: No
[2023-08-04] MEDS: ENOXAPARIN 40 MG/0.4 ML SYRINGE SUBCUT (09:02)
[2023-08-04] MEDS: FAMOTIDINE 20 MG/2 ML VIAL IV ×2 (09:02→20:32)
[2023-08-04 09:23] LABS: PCO2 ABG 32.3 mmHg (35-45); pH ABG 7.42 (7.35-7.45)
[2023-08-04] MEDS: POTASSIUM CHLORIDE 20 MEQ TAB 40 MEQ PO (09:56)
[2023-08-04] MEDS: ACETAMINOPHEN 325 MG TABLET 650 MG PO ×2 (10:40→20:33)
--- NOTE | 2023-08-04 13:10 | PT.IIE ---
Current Diagnoses Sarcoidosis, unspecified (08/03/23) Type 2 diabetes mellitus without complications (08/03/23) Essential (primary) hypertension (08/03/23) Surgical History (Last Reviewed 08/03/23 @ 16:21 by Renetta Parker DO) H/O tubal ligation (1977) History of cholecystectomy (1979) History of tonsillectomy (~1950) Hx of tympanostomy tubes Medical History (Last Reviewed 08/03/23 @ 16:21 by Renetta Parker DO) Degenerative disc disease (Unknown) Diabetes (Unknown) Hearing loss (Unknown) Hypertension (Unknown) Mediastinal lymphadenopathy (Unknown) Obstructive sleep apnea (Unknown) Peripheral neuropathy (Unknown) Sarcoidosis (Unknown) Physical Therapy Inpatient Evaluation/Re-Eval M1 PT/OT-IP Prior Functional Status Start: 08/04/23 10:08 Freq: NEEDED Status: Active Protocol: Document 08/04/23 12:30 MB (Rec: 08/04/23 13:10 MB [id number]) Medical Review Prior Functional Status Medical History Reviewed Yes Diet/Fluid Consistency Regular Communication WNLs Mobility and Gait Pt is a poor historian and it is unclear how much help she needed at baseline. She reports progressive weakness and trouble doing laundry at baseline. One of her sons checks in on her to help with this. She was not driving and it is unclear how she was doing as far as cooking/meals, bathing, dressing and mobility. Pt states she had a 4WRW Activities of Daily Living and IADL's See above Social History Household Members none Living Arrangements Apartment/Condo Number of Floors (Floors) One Floor Number of Stairs To Enter/Railing? 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 Employment Status Retired Additional Social History Comment Unclear other DME/set-up in the home M2 PT-IP Current Condition Start: 08/04/23 10:08 Freq: NEEDED Status: Active Protocol: Document 08/04/23 12:30 MB (Rec: 08/04/23 13:10 MB [id number]) Physical Therapy Current Condition Current Condition Evaluation Date 08/04/23 Treatment Diagnosis Progressive weakness, sepsis, new dx metastatic rectal adenocarcinoma Onset Date Unclear M3 PT-IP Subjective Start: 08/04/23 10:08 Freq: NEEDED Status: Active Protocol: Document 08/04/23 12:30 MB (Rec: 08/04/23 13:10 MB [id number]) Subjective Physical Therapy Visit Type Type Initial Evaluation Visit Start Time 12:30 Visit Stop Time 12:55 Total Visit Minutes 25 Number of MANAGER AGRICULTURAL Visits 0 Physical Therapy Visit Comments Patient Comments Pt is not very communicative about goals, has trouble answering questions, is SOB Therapy Pain Assessment Pain When Pain Assessed During Mobility Pain Present Pain Present Pain Reported Location Globalized, LB Intensity 6 Scale Used Lozano-Pepper (Faces) Description Acute Pain Behaviors Facial Grimacing,Guarding, Holding Area,Moaning,Wincing Pain Management Techniques Re-positioning M4 PT-IP Mobility and Gait Start: 08/04/23 10:08 Freq: NEEDED Status: Active Protocol: Document 08/04/23 12:30 MB (Rec: 08/04/23 13:10 MB [id number]) PT-Bed Mobility Assessment Rolling Level of Assist Moderate Assistance,1 Person Assistance Supine to Sit Supine to Sit Moderate Assistance,2 Person Assistance,Head of Bed Elevated,Bedrails Scooting Scooting Up and Down in Bed Dependent PT-Transfer Assessment Comments Mobility Comments PT and nsg assisting pt with bed mobility and preparing for transfer if able d/t lines, pt moaning, NOGUERA with dropping O2 sats and tachycardia. Nsg increases O2 to 3L with mobility and sats drop to 87% occ and stay in the 90s. Her HR does increase to the 120s BPM with mobility and pt moans often, appears uncomfortable and has NOGUERA. PT-Balance Assessment Sitting Balance and Reactions Static Sitting Balance Ability Fair Dynamic Sitting Balance Ability Poor M5 PT-IP Objective Assessments Start: 08/04/23 10:08 Freq: NEEDED Status: Active Protocol: Document 08/04/23 12:30 MB (Rec: 08/04/23 13:10 MB [id number]) Orientation Orientation/Cognition Level of Alertness Confusional State Orientation Name,Age,Birthday,Year Language Function Ability Hard of Hearing Safety Awareness Decreased Safety Awareness Memory Description Short Term Impaired,Desulphuring Operator Impaired Gross Range of Motion Upper Extremity ROM Assessment Bilaterally Impaired Lower Extremity ROM Assessment Bilaterally Impaired Strength Upper Extremity Strength Assessment Bilaterally Impaired Lower Extremity Strength Assessment Bilaterally Impaired Comments Strength Comments Pt with globalized pain and pain to touch and she does not tolerate range or strength testing in limbs. She has B feet with toe coldness to touch and blueish in color. She has abdominal distention and tightness. Sensation Assessment Comments Sensation Comments Pt cannot accurately respond to sensory testing. Muscle Tone Muscle Tone WNL No M6 PT-IP Treatment Start: 08/04/23 10:08 Freq: NEEDED Status: Active Protocol: Document 08/04/23 12:30 MB (Rec: 08/04/23 13:10 MB [id number]) Physical Therapy Treatment Education Education Provided Safety M7 PT-IP Assessment and Plan Start: 08/04/23 10:08 Freq: NEEDED Status: Active Protocol: Document 08/04/23 12:30 MB (Rec: 08/04/23 13:10 MB [id number]) PT Summary Assessment and Plan Potential Rehabilitation Potential Poor Status of Condition at Evaluation Unstable Summary Impairments Pain,ROM,Strength,Balance, Cognition,Bed Mobility, Transfers,Gait,Activity Tolerance Progress Towards Goals Slow Progress due to Medical Issues,Slow Progress due to Activity Tolerance Assessment Summary Pt is a 73 y/o female presenting to the hospital with sepsis and new dx of metastatic rectal adenocarcinoma. She was also found to have T11 and L1 fractures. Pt is a poor historian and it does appear that she lived at home alone with little help and was having progressive weakness and trouble caring for herself . On the eval, she appears very uncomfortable, has abdominal distention and tightness, moaning with c/o back and globalized pain, cyanosis of her toes with coldness to touch and NOGUERA with increased effort and difficulty with bed mobility. Upon sitting she c/o nausea and PT and nsg assist pt back to supine. She requires dependent assistance to scoot back in the bed. PT functional progonsis is poor in setting of her presentation today and ? medical prognosis. She may be appropriate for hospice trajectory depending on what the doctor and medical team determine. She will require heavy 24 hour care at d/c and unsure how much therapy she will be able to participate with. Goals Bed Mobility Goal Contact Guard Assistance Transfer Goal Contact Guard Assistance,Front Wheeled Walker Gait Goal Contact Guard Assistance,Front Wheel Walker Gait Distance 25 Days to Meet Goals 10 Frequency of Treatment Frequency Of Treatment Once a Day Treatment Plan Physical Therapy Treatment Plan Bed Mobility Training,Transfer Training,Gait Training, Therapeutic Exercise,Balance Retraining Weight Bearing Status Weight Bearing Status Weight Bear as Tolerated Recommendations To Nursing Amount of Assist Needed Mechanical Lift Discharge Recommendations Other Discharge Recommendations SNF vs hospice Transportation Needs at Discharge Stretcher/Ambulance
[2023-08-04] MEDS: DULOXETINE 30 MG CAPSULE 60 MG PO ×2 (14:00→20:30)
[2023-08-04] MEDS: METFORMIN HCL 500 MG TABLET 1000 MG PO (17:13)
--- NOTE | 2023-08-04 17:37 | PC.NURSE ---
No significant changes throughout shift. Assisted with PT Neelam to get pt OOB to chair. Pt unable to transfer further than edge of bed--became nauseated, tachypneic, SPO2 88% and increased to 3L NC, became tachycardic in 120's and was assisted back to bed with assist x 2. SPO2 improved after rest. Levophed paused per DEC for consistent MAP's > 70. HR remains 105-118 throughout the day. Temp noted to increase around 10am from 98.8 to 99.3 and tylenol given. Temp remains at 99.5 Core at this time. MD aware. No new orders. Pt has been eating 25% meals. Urged to increase fluids. Minimal output today of about 400mL total. Mullins remains in place. Resting in bed at this time and appears comfortable. No new orders. Pt had multiple family members visiting today inquiring about the next steps in the oncology process. Dr Anguiano given Robi breaux'patrick phone number [phone] and conversed about patient's plan of care. Multiple family members inquiring with staff about plan of care and advised a point of contact needs to be established, which will be Brian breaux [phone].
[2023-08-04] MEDS: BUDESONIDE 0.5 MG/2 ML NEB INH (20:05)
[2023-08-04] MEDS: POTASSIUM CHLORIDE 20 MEQ TAB PO (20:31)
[2023-08-04] MEDS: ATORVASTATIN 20 MG TABLET 10 MG PO (20:32)
[2023-08-05] VITALS (66 sets, daily range): BP systolic 79–145; BP diastolic 47–81; PULSE 114–124; RESP 15–37; TEMP 37.4–38.3; O2SAT 74–97
[2023-08-05] MEDS: ACETAMINOPHEN 325 MG TABLET 650 MG PO (02:52)
[2023-08-05] MEDS: OXYCODONE IR 5 MG TABLET PO (02:52)
[2023-08-05] MEDS: ALBUTEROL 2.5 MG/3 ML NEB (ADULT) INH (03:15)
[2023-08-05] MEDS: PIPERACILLIN/TAZO 3.375 GM in SODIUM CHLORIDE 0.9% 100 ML IV ×2 (05:00→13:11)
[2023-08-05] MEDS: VANCOMYCIN TROUGH 1 REQUEST MISC (05:30)
[2023-08-05 05:53] LABS: Add Manual Diff / Slide Review NO; Basophils Absolute Auto 0 /uL (0-100); Basophils Percent Auto 0.1 % (0-2); Eosinophils Absolute Auto 0 /uL (0-450); Eosinophils Percent Auto 0.2 % (2-4); Hematocrit 35.3 % (36-46); Hemoglobin 11.2 g/dL (12.0-16.0); Lymphocytes Absolute Auto 900 /uL (1100-4500); Lymphocytes Percent Auto 5.5 % (25-40); Mean Corpuscular HGB Conc 31.7 % (30-36); Mean Corpuscular Hemoglobin 25.4 PG (26-34); Mean Corpuscular Volume 80.2 fL (80-100); Monocytes Absolute Auto 800 /uL (0-900); Monocytes Percent Auto 5.1 % (3-14); Neutrophils Absolute Auto 14700 /uL (1500-7000); Neutrophils Percent Auto 89.1 % (50-75); Platelet Count 93 X10^3/uL (150-400); Red Cell Distribution Width 15.5 % (11.6-14.8); White Blood Cell Count 16.5 X10^3/uL (4.5-11.0)
[2023-08-05] MEDS: HYDROMORPHONE 0.5 MG INJ IV (06:00)
[2023-08-05 06:05] LABS: Alanine Aminotransferase 14 IU/L (<35); Albumin 2.3 g/dL (3.5-5.0); Albumin Globulin Ratio 0.7 (1.0-2.8); Alkaline Phosphatase 244 U/L (38-126); Aspartate Aminotransferase 43 IU/L (14-36); BUN Creatinine Ratio 55.8 (6-22); Bilirubin Total 0.5 mg/dL (0.2-1.3); Blood Urea Nitrogen 29 mg/dL (7-17); Calcium 8.1 mg/dL (8.4-10.2); Carbon Dioxide 24 mmol/L (22-32); Chloride 102 mmol/L (98-107); Estimated Glomerular Filt Rate > 60 mL/min (>60); Globulin 3.5 g/dL (1.7-4.1); Glucose 253 mg/dL (80-110); HEMOLYSIS < 15 (0-50); Potassium 3.9 mmol/L (3.4-5.1); Sodium 132 mmol/L (137-145); Total Protein 5.8 g/dL (6.3-8.2)
[2023-08-05] MEDS: VANCOMYCIN 1,250 MG/250 ML PIGGYBACK 125 MG IV (06:09)
[2023-08-05 06:17] LABS: Vancomycin Trough 10.9 ug/mL (10-20)
[2023-08-05 07:03] LABS: Magnesium 1.7 mg/dL (1.6-2.3)
--- NOTE | 2023-08-05 07:44 | PM.PN.1 ---
Subjective Subjective Interval history: Patient becoming more somnolent and writhing in pain. This was helped with IV morphine. A 17 minute GOC discussion was had with son Epifanio and his Milana about patient's poor prognosis and her appearing to be actively dying. They switched her to DNR and comfort measures only. Exam Vital Signs (past 8 hours): - 08/04/23 23:45 08/04/23 23:51 08/05/23 00:00 Temperature 99.5 F 99.3 F Pulse Rate 116 H 116 H Respiratory Rate 35 H 36 H Blood Pressure Pulse Oximetry 94 95 Oxygen Delivery Method Nasal Cannula Oxygen Flow Rate 08/05/23 00:00 08/05/23 00:15 08/05/23 00:30 Temperature 99.3 F 99.3 F Pulse Rate 116 H 117 H Respiratory Rate 17 17 Blood Pressure 110/69 Pulse Oximetry 96 95 Oxygen Delivery Method Oxygen Flow Rate 08/05/23 00:30 08/05/23 00:45 08/05/23 01:00 Temperature 99.7 F H 99.7 F H Pulse Rate 118 H 118 H Respiratory Rate 17 17 Blood Pressure 117/69 Pulse Oximetry 96 97 Oxygen Delivery Method Oxygen Flow Rate 08/05/23 01:00 08/05/23 01:15 08/05/23 01:30 Temperature 99.7 F H 99.9 F H Pulse Rate 119 H 119 H Respiratory Rate 17 17 Blood Pressure 115/72 Pulse Oximetry 96 96 Oxygen Delivery Method Oxygen Flow Rate 08/05/23 01:30 08/05/23 01:45 08/05/23 02:00 Temperature 99.9 F H Pulse Rate 119 H Respiratory Rate 17 Blood Pressure 126/70 102/67 Pulse Oximetry 95 Oxygen Delivery Method Oxygen Flow Rate 08/05/23 02:00 08/05/23 02:15 08/05/23 02:30 Temperature 100.0 F H 100.0 F H 100.0 F H Pulse Rate 120 H 120 H 119 H Respiratory Rate 20 18 19 Blood Pressure Pulse Oximetry 90 L 95 96 Oxygen Delivery Method Oxygen Flow Rate 08/05/23 02:30 08/05/23 02:45 08/05/23 02:52 Temperature 100.2 F H 100.9 F H Pulse Rate 119 H Respiratory Rate 19 Blood Pressure 109/57 L Pulse Oximetry 96 Oxygen Delivery Method Oxygen Flow Rate 08/05/23 03:00 08/05/23 03:00 08/05/23 03:15 Temperature 100.2 F H 100.2 F H Pulse Rate 118 H 120 H Respiratory Rate 20 21 Blood Pressure 105/71 Pulse Oximetry 95 96 Oxygen Delivery Method Oxygen Flow Rate 08/05/23 03:15 08/05/23 03:15 08/05/23 03:30 Temperature 100.2 F H 100.2 F H Pulse Rate 114 H 119 H Respiratory Rate 30 H 20 Blood Pressure Pulse Oximetry 93 89 L Oxygen Delivery Method Nasal Cannula Oxygen Flow Rate 08/05/23 03:30 08/05/23 03:45 08/05/23 03:45 Temperature 100.2 F H Pulse Rate 123 H Respiratory Rate 26 H Blood Pressure 113/69 Pulse Oximetry 94 Oxygen Delivery Method Nasal Cannula Oxygen Flow Rate 08/05/23 04:00 08/05/23 04:00 08/05/23 04:15 Temperature 100.2 F H 100.2 F H Pulse Rate 122 H 122 H Respiratory Rate 25 H 23 Blood Pressure 107/65 Pulse Oximetry 89 L 89 L Oxygen Delivery Method Oxygen Flow Rate 2 2 08/05/23 04:23 08/05/23 04:30 08/05/23 04:30 Temperature 100.4 F H 100.4 F H Pulse Rate 122 H 120 H Respiratory Rate 24 25 H Blood Pressure 118/69 Pulse Oximetry 90 L 88 L Oxygen Delivery Method Oxygen Flow Rate 2 08/05/23 04:45 08/05/23 05:00 08/05/23 05:00 Temperature 100.4 F H 100.0 F H Pulse Rate 121 H 124 H Respiratory Rate 22 25 H Blood Pressure 140/76 Pulse Oximetry 88 L 90 L Oxygen Delivery Method Oxygen Flow Rate 08/05/23 05:15 08/05/23 05:30 08/05/23 05:30 Temperature 100.2 F H 100.4 F H Pulse Rate 122 H 123 H Respiratory Rate 22 23 Blood Pressure 145/72 H Pulse Oximetry 74 L Oxygen Delivery Method Oxygen Flow Rate 08/05/23 05:45 08/05/23 06:00 08/05/23 06:06 Temperature 100.4 F H 100.6 F H 100.6 F H Pulse Rate 123 H 124 H 124 H Respiratory Rate 21 22 22 Blood Pressure Pulse Oximetry 96 90 L 92 Oxygen Delivery Method Oxygen Flow Rate 08/05/23 06:06 08/05/23 06:15 08/05/23 06:30 Temperature 100.6 F H 100.4 F H Pulse Rate 122 H 120 H Respiratory Rate 19 19 Blood Pressure 118/62 Pulse Oximetry 96 96 Oxygen Delivery Method Oxygen Flow Rate 08/05/23 06:30 Temperature Pulse Rate Respiratory Rate Blood Pressure 118/61 Pulse Oximetry Oxygen Delivery Method Oxygen Flow Rate Oxygen Delivery Method Nasal Cannula Oxygen Flow Rate 2 Narrative Exam Narrative: Somnolent, appears comfortable. HEENT is normal for EOMI, anicteric sclerae. Her oropharynx is extremely dry. Neck is supple, no adenopathy. Lungs are clear, normal effort. Heart is tachycardic, no murmur. Abdomen is distended, she does have right upper quadrant tenderness with palpation. No guarding or rebound. Extremities are free of edema, skin is notable for a diffuse papular rash which appears to be fairly chronic. Joints are unremarkable, no adenopathy. She moves arms and legs, no facial droop. Objective Labs 08/05/23 05:30 08/05/23 05:30 Labs: Laboratory Results - last 24 hr 08/03/23 08/05/23 22:52 05:30 WBC 16.5 H RBC 4.40 Hgb 11.2 L Hct 35.3 L MCV 80.2 MCH 25.4 L MCHC 31.7 RDW 15.5 H Plt Count 93 L Neut % (Auto) 89.1 H Lymph % (Auto) 5.5 L [place] % (Auto) 5.1 Eos % (Auto) 0.2 L Baso % (Auto) 0.1 Neut # (Auto) 72823 H Lymph # (Auto) 900 L [place] # (Auto) 800 Eos # (Auto) 0 Baso # (Auto) 0 ABG pH 7.42 ABG pCO2 32.3 L Sodium 132 L Potassium 3.9 Chloride 102 Carbon Dioxide 24 BUN 29 H Creatinine 0.52 Estimated GFR > 60 BUN/Creatinine Ratio 55.8 H Glucose 253 H Calcium 8.1 L Magnesium 1.7 Total Bilirubin 0.5 AST 43 H ALT 14 Alkaline Phosphatase 244 H D Total Protein 5.8 L Albumin 2.3 L Globulin 3.5 Albumin/Globulin Ratio 0.7 L Vancomycin Trough 10.9 PFSH Medical History Obstructive sleep apnea (Unknown) Hearing loss (Unknown) Sarcoidosis (Unknown) Mediastinal lymphadenopathy (Unknown) Degenerative disc disease (Unknown) Diabetes (Unknown) Hypertension (Unknown) Peripheral neuropathy (Unknown) Surgical History Hx of tympanostomy tubes History of cholecystectomy (1979) History of tonsillectomy (~1950) H/O tubal ligation (1977) Family History Father Cancer Mother Cancer Social History household members: none Smoking Status: Never smoker Assessment & Plan Assessment & Plan narrative: 1. Severe septic shock with tachycardia, tachypnea, lactic acidosis, and abnormal liver function tests. Source is unclear. Present on admission and active. 2. Profound volume depletion, present on admission and active. 3. Sinus tachycardia likely related to volume depletion and sepsis, present on admission and active. 4. Apparent new diagnosis of metastatic rectal cancer, present on admission and active. Mets to spine and liver. 5. Chest x-ray and CT read as possible pulmonary edema with an elevated BNP, and a pleural effusion. Present on admission and active. 6. Lactic acidosis, present on admission and active. 7. Elevated liver function tests and evidence of metastases to the liver, present on admission and active. 8. Hypokalemia Now comfort care after GOC discussion with family. DNR. Will pass in the hospital. Likely imminent. Quality VTE Deep Vein Thrombosis/Pulmonary Embolism Present on Admission: No
[2023-08-05] MEDS: BUDESONIDE 0.5 MG/2 ML NEB INH (08:10)
[2023-08-05 08:24] LABS: Procalcitonin 7.82 ng/mL (<0.5)
[2023-08-05] MEDS: MAGNESIUM SULFATE 2 GM/50 ML PIGGYBACK IV (08:40)
[2023-08-05] MEDS: MORPHINE 2 MG/ML INJ IV (08:41)
[2023-08-05] MEDS: INSULIN GLARGINE 100 UNIT/ML 3ML PEN 10 UNIT SUBCUT (08:41)
[2023-08-05] MEDS: ENOXAPARIN 40 MG/0.4 ML SYRINGE SUBCUT (08:42)
[2023-08-05] MEDS: DULOXETINE 30 MG CAPSULE 60 MG PO (08:42)
[2023-08-05] MEDS: POTASSIUM CHLORIDE 20 MEQ TAB PO (08:43)
[2023-08-05] MEDS: FAMOTIDINE 20 MG/2 ML VIAL IV (08:43)
[2023-08-05] MEDS: MORPHINE ER 15 MG TABLET PO (08:45)
[2023-08-05] MEDS: DOXYCYCLINE 100 MG in SODIUM CHLORIDE 0.9% 100 ML IV (08:46)
[2023-08-05] MEDS: MORPHINE 2 MG/ML INJ 4 MG IV ×2 (11:15→16:52)
[2023-08-05] MEDS: SODIUM CHLORIDE 0.9% 1,000 ML 100 ML IV (13:12)
--- NOTE | 2023-08-05 13:28 | PT-IP ANOTE ---
Per nursing staff, due to pt's medical status, the pt will now be moving towards receiving comfort care. PT services are no longer needed, as skilled PT would not be appropriate at this time.
--- NOTE | 2023-08-05 17:43 | CM.DPNOTE ---
DCP Note: [employer]ING [employer]SE [employer] reviewed EMR. Per provider, attempting to wait for family to arrive to complete goals of care conversation. Patient is here following new cancer diagnosis. Per RN, patient switched to DNR. Per PN, patient and family have yet to fully process news of new diagnosis and potential prognosis. Due to triaging needs and new diagnosis/family processing news, Appropriate to hold off on hospice/discharge conversation until tomorrow. Plan: CM team will meet with family tomorrow to coordinate potential hospice plan. CM team will follow closely. ALFA Boo
[2023-08-05] MEDS: MORPHINE 10 MG/0.5 ML ORAL SYRINGE SL ×4 (17:48→21:19)
[2023-08-05] MEDS: LORazepam 2 MG/ML ORAL SOL 1 MG SL ×2 (18:52→19:56)
[2023-08-05] MEDS: SCOPOLAMINE 1 PATCH TOP (22:11)
[2023-08-05] MEDS: MORPHINE 50 MG in DEXTROSE 5 % IN WATER 45 ML IV (22:11)
[2023-08-06] MEDS: LORazepam 2 MG/ML ORAL SOL 1 MG SL (00:59)
[2023-08-06] MEDS: MORPHINE 50 MG in DEXTROSE 5 % IN WATER 45 ML 7 MG IV (06:15)
[2023-08-06] MEDS: MORPHINE 100 MG in DEXTROSE 5 % IN WATER 90 ML 9 MG IV (13:12)
--- NOTE | 2023-08-06 13:49 | PC.NURSE ---
Son at bedside came to inform nursing staff that he thought mom . no breath sounds or heartbeat @1325 verified with auscultation. Charge nurse and MD notified. Family will be coming within the next hour and will let nursing staff know what home.
--- NOTE | 2023-08-06 14:04 | CM.DPC ---
DCP Per MD and RN, pt today around 1330 and son was bedside and aware and more family will be present and they will notify staff of home for arrangements. ALFA Luevano
--- NOTE | 2023-08-07 14:53 | PM.DDS.1 ---
Discharge Summary History of Illness Narrative: Per admitting physician: This is a 73-year-old female who presents with extremis and whole-body mottling. She was brought by ambulance from her home for weakness and being bed-bound for least several days. Her son arrives from a neighboring town shortly after her stabilization and central line were placed in the emergency department. He is able to check on her about once every week. They describe a course of several months of downward decline. The patient has had progressive weakness, and anorexia. She has frequent episodes of diarrhea which alternate with constipation. She denies any rectal bleeding or rectal pain. She has never had a colonoscopy. In the emergency department she was tachycardic and mottled. She was initially hypertensive. She was fluid resuscitated with a standard sepsis bolus of crystalloid. A central venous catheter was placed in the right internal jugular. The patient had a clear chest x-ray. Her initial lactic was quite elevated. She was given broad-spectrum antibiotics after blood cultures, including Zosyn and vancomycin. She was not febrile. The patient denies recent upper respiratory symptoms, cough or dyspnea. No chest pain. Her ECG revealed a sinus tachycardia. Her abdomen was distended and a CT scan was obtained of the chest and abdomen. Unfortunately, this revealed evidence of a undiagnosed rectal cancer which has metastasized to the retroperitoneum, peritoneum, liver, and spine. The patient improved with her fluid bolus and she is mentally alert and not confused. She does note she feels extremely dehydrated. Her tongue is very dry in appearance. She does live alone just 2 blocks from the hospital. She denies recent abdominal pain. She was informed that unfortunately the CT scan does reveal evidence of a widespread rectal cancer. Hospital Course Date of Admission: 08/03/23 17:52 Primary care provider: Danette Barajas MD Consults: 08/03/23 18:20 Consult to Physical Therapy Evaluate & Treat Comment: Physician Instructions: Evaluate and Treat Discharge provider: Dr. Dimas Discharge Diagnosis: 1. Septic shock from Strep Mitis bacteremia 2. Metastatic rectal cancer Hospital Course: Ms. Nicole Sy presented to the hospital with weakness initially but was admitted with septic shock possibly from an abdominal source as ultimately she had Strep Mitis bacteremia. Her initial workup showed a new finding of likely metastatic rectal cancer. She was critically ill and after discussion family decided that comfort measures were within her goals of care and she with family at bedside on 08/06 at 1325. Objective Labs 08/05/23 05:30 08/05/23 05:30
== END 2023-08-06 16:00 | disposition expired | DRG 871 ==
LOC: ED 15:54 → AC 17:53 → ICU 18:00
PROVIDERS: Internal Medicine; Student in an Organized Health Care Education/Training Program; Admitting Provider Hospitalist; Emergency Provider Emergency Medicine; PCP Internal Medicine; Referring Provider Emergency Medicine; Visit Provider Hospitalist
DX: A41.9 Sepsis, unspecified organism (principal); R65.21 Severe sepsis with septic shock; E87.20 Acidosis, unspecified; C20 Malignant neoplasm of rectum; C78.7 Secondary malignant neoplasm of liver and intrahepatic bile duct; C79.51 Secondary malignant neoplasm of bone; E11.9 Type 2 diabetes mellitus without complications; E87.6 Hypokalemia; B95.4 Other streptococcus as the cause of diseases classified elsewhere; Z51.5 Encounter for palliative care; Z79.85 Long-term (current) use of injectable non-insulin antidiabetic drugs; Z66 Do not resuscitate; Z79.84 Long term (current) use of oral hypoglycemic drugs
CPT/HCPCS: 36415; 36592; 36600; 71045; 71260; 74177; 80053; 80202; 81001; 82550; 82805; 82962; 83605; 83690; 83735; 83880; 84145; 84484; 85007; 85025; 85610; 85730; 87040; 87077; 87154; 87186; 87633; 87635; 87797; 93005; 93010; 94640; 96365; 96367; 96368; 97162; 99285; 99291; C9803; J0131; J1170; J1650; J2270; J2543; J3475; J7613